=== PATIENT | female | born 1955 | race American Indian/Alaskan Native ===

== ENCOUNTER 2018-07-02 15:39 | Inpatient (IN) | payer OTHER ==
[2018-07-02] MEDS ORDERED: SUBLIMAZE ONE (15:46)
[2018-07-02] MEDS ORDERED: SUBLIMAZE IV ONE (15:46)
[2018-07-02] MEDS ORDERED: ZOFRAN IV ONE (15:46)
[2018-07-02] MEDS ORDERED: DILAUDID IV ONE (16:08)
--- NOTE | 2018-07-02 16:08 | Emergency Department Report ---
HPI - General Time Seen by Provider: 07/02/18 15:44 - HPI HPI: Room 19 The patient is a 62-year-old female presenting with a chief complaint of left lower extremity pain. The patient states that at approximately 14:00 she began having in her proximal left lower extremity. Patient denies any preceding trauma. Patient denies fever. Patient denies any other forms of pain. Patient states she has never had this pain before. Location: Left leg Duration: Constant since 14:00 Quality: Pain Severity: Severe Modifying factors: [see above] Context: [see above] Mode of transportation: [not driving] ED Past Medical Hx - Past Medical History Hx of Cancer: Yes (rest CA s/p lumpectomy and chemo 2007) - Surgical History Past Surgical History?: No Additional Surgical History: Lumpectomy - Family History Family history: no significant - Social History Smoking Status: Never Smoker Substance Use Type: None ED Review of Systems ROS: Stated complaint: L LEG PAIN Other details as noted in HPI Constitutional: no symptoms reported Eyes: denies: eye pain ENT: denies: throat pain Respiratory: no symptoms reported Cardiovascular: denies: chest pain Endocrine: no symptoms reported Gastrointestinal: denies: abdominal pain Musculoskeletal: myalgia Neurological: denies: headache Physical Exam - Physical Exam Physical Exam: GENERAL: The patient is well-developed well-nourished female lying on stretcher appearing to be in moderate discomfort. [] HEENT: Normocephalic. Atraumatic. Extraocular motions are intact. Patient has moist mucous membranes. NECK: Supple. Trachea midline CHEST/LUNGS: Clear to auscultation. There is no respiratory distress noted. HEART/CARDIOVASCULAR: Regular. There is no tachycardia. There is no gallop rub or murmur. Unable to palpate left DP ABDOMEN: Abdomen is soft, nontender. Patient has normal bowel sounds. There is no abdominal distention. SKIN: There is no rash. There is no edema. There is no diaphoresis. NEURO: The patient is awake, alert, and oriented. The patient is cooperative. The patient has normal speech MUSCULOSKELETAL: There is no evidence of acute injury. Patient is able to move the left lower extremity at the hip and knee but states she cannot wiggle her toes ED Course - Consultations Consultation #1: 07/02/18 16:52 Vascular surgery paged 07/02/18 17:[address] Robertson-will evaluate patient in ED ED Medical Decision Making - Lab Data Result diagrams: 07/02/18 15:49 07/02/18 15:49 - Differential Diagnosis peripheral arterial disease, rhabdomyolysis, Critical Care Time: Yes Critical care time in (mins) excluding proc time.: 30 Critical care attestation.: If time is entered above; I have spent that time in minutes in the direct care of this critically ill patient, excluding procedure time. ED Disposition Clinical Impression: Acute occlusion of artery of lower extremity, Acute pain of left lower extremity Disposition: DC-[id number] OP ADMIT IP TO THIS HOSP Is pt being admited?: Yes Does the pt Need Aspirin: Yes Condition: Serious Time of Disposition: 17:05
[2018-07-02 16:17] LABS: Basophils # (Auto) 0.1 K/mm3 (0.0-0.1); Basophils % (Auto) 0.5 % (0.0-1.8); Eosinophils # (Auto) 0.3 K/mm3 (0.0-0.4); Eosinophils % (Auto) 2.2 % (0.0-4.3); Hematocrit 35.8 % (30.3-42.9); Lymphocytes # (Auto) 2.3 K/mm3 (1.2-5.4); Lymphocytes % (Auto) 17.5 % (13.4-35.0); Mean Corpuscular HGB Conc 34 % (30-34); Mean Corpuscular Hemoglobin 28 pg (28-32); Mean Corpuscular Volume 82 fl (79-97); Monocytes # (Auto) 0.6 K/mm3 (0.0-0.8); Monocytes % (Auto) 4.6 % (0.0-7.3); Platelet Count 209 K/mm3 (140-440); Red Blood Count 4.36 M/mm3 (3.65-5.03); Red Cell Distribution Width 14.9 % (13.2-15.2)
[2018-07-02 16:35] LABS: BUN/Creatinine Ratio 14; Blood Urea Nitrogen 13 mg/dL (7-17); Calcium 9.4 mg/dL (8.4-10.2); Hemolysis Index 4
[2018-07-02 16:36] LABS: INR 1.05 (0.87-1.13)
[2018-07-02 16:37] LABS: Partial Thromboplastin Time 25.2 Sec. (24.2-36.6)
[2018-07-02] MEDS ORDERED: HEPARIN 10,000 UNITS/10 ML IV ONE ×2 (17:23→19:47)
[2018-07-02] MEDS ORDERED: HEPARIN/ 0.45% NACL-25,000 UNIT/500 ML 25,000 UNIT/500 ML BAG IV SCH (18:00)
--- NOTE | 2018-07-02 18:33 | Anesthesia Day of Surgery ---
Anesthesia Day of Surgery - Day of Surgery Patient Examined: Yes Patient H&P Reviewed: Yes Patient is NPO: Yes
--- NOTE | 2018-07-02 18:35 | History and Physical Report ---
History of Present Illness Date of examination: 07/02/18 Date of admission: 07/02/2018 Chief complaint: left leg pain and numbness History of present illness: Patient is a 62-year-old woman with a past medical history most significant for breast cancer which was last treated in 2007. At approximately 2 PM today she noticed the abrupt onset of pain and numbness involving the left lower extremity. Just prior to that she had had sensations of wanting to have a bowel movement. She actually did have 2 bowel movements. After the second bowel movement she described a sudden onset of pain and numbness involving the left lower extremity. The pain continues now. She states she cannot move the left foot and that it feels numb. She has no complaints relative to the right lower extremity. She denies any previous history of atrial fibrillation or arterial or venous thrombosis. She is not currently taking any hormone therapy for breast cancer. She is being treated for hypertension. Past History Past Medical History: cancer (breast cancer last treated in 2007), hypertension. denies: atrial fib, diabetes, PVD, pulmonary embolism, renal failure, stroke Past Surgical History: mastectomy (left) Social history: lives with family. denies: smoking, alcohol abuse Family history: no significant family history Medications and Allergies Allergies Allergy/AdvReac Type Severity Reaction Status Date / Time No Known Allergies Allergy Unverified 07/02/18 16:01 Active Meds: Active Medications Heparin Sodium/Sodium Chloride (Heparin/ 0.45% Nacl-25,000 Unit/500 Ml) 25,000 unit in 500 mls @ 20 mls/hr IV TITR TIARRA; Protocol Last Admin: 07/02/18 18:12 Dose: 1,000 units/hr, 20 mls/hr Review of Systems All systems: negative - Constitutional no weight loss, no weight gain, no fever, no chills, no sweats, no fatigue, no weakness, no malaise - Cardiovascular no chest pain, no palpitations, no rapid/irregular heart beat - Respiratory no shortness of breath - Gastrointestinal no abdominal pain, no nausea, no vomiting - Neurological other (cannot move left leg) - Psychiatric no anxiety, no memory loss, no depression - Endocrine no cold intolerance, no heat intolerance - Hematologic/Lymphatic lymphedema (left arm), no easy bruising, no easy bleeding - Allergic/Immunologic no urticaria Exam Vital Signs Pulse BP Pulse Ox 73 229/127 99 07/02/18 15:46 07/02/18 15:46 07/02/18 15:46 - General physical appearance Positive: well developed, well nourished, no distress - Eyes Positive: PERRL, normal occular movement - ENT Positive: normal pinna, normal nares, normal mucosa, no hearing loss, no congestion - Neck Positive: no masses, no bruits, trachea midline, no venous distension - Respiratory Positive: normal expansion, normal respiratory effort, clear to auscultation - Cardiovascular Rhythm: regular Heart Sounds: Present: S1 & S2. Absent: rub, click - Extremities Extremity abnormal: other (the right lower extremity is within normal limits. The left lower extremity is cold and pulseless starting at the femoral artery and distal. There is no sensation and no motion below the level of the thigh.) - Peripheral pulses dorsalis pedis Pulse Strength: 2+ (right, absent on the left.) - Breasts Breasts: deferred - Abdomen Abdomen: Present: soft, bowel sounds normal. Absent: tender, distended - Genitourinary Female Genitourinary: deferred - Integumentary no rash, no growths, no abnormal pigmentation - Neurologic Neurologic: alert and oriented to time, place and person, motor strength and sensation are grossly intact, CN II-XII intact - Musculoskeletal other (see above) - Psychiatric Psychiatric: appropriate mood/affect, intact judgment & insight Results - Labs 07/02/18 15:49 07/02/18 15:49 Abnormal lab results 07/02/18 07/02/18 07/02/18 Range/Units 15:49 15:49 15:49 WBC 12.9 H (4.5-11.0) K/mm3 Seg Neutrophils % 75.2 H (40.0-70.0) % Seg Neutrophils # 9.7 H (1.8-7.7) K/mm3 Potassium 2.6 L* (3.6-5.0) mmol/L Chloride 97.8 L (98-107) mmol/L Glucose 158 H (65-100) mg/dL Total Creatine Kinase 165 H (30-135) units/L Diabetes panel 07/02/18 Range/Units 15:49 Sodium 137 (137-145) mmol/L Potassium 2.6 L* (3.6-5.0) mmol/L Chloride 97.8 L (98-107) mmol/L Carbon Dioxide 24 (22-30) mmol/L BUN 13 (7-17) mg/dL Creatinine 0.9 (0.7-1.2) mg/dL Glucose 158 H (65-100) mg/dL Calcium 9.4 (8.4-10.2) mg/dL Calcium panel 07/02/18 Range/Units 15:49 Calcium 9.4 (8.4-10.2) mg/dL Pituitary panel 07/02/18 Range/Units 15:49 Sodium 137 (137-145) mmol/L Potassium 2.6 L* (3.6-5.0) mmol/L Chloride 97.8 L (98-107) mmol/L Carbon Dioxide 24 (22-30) mmol/L BUN 13 (7-17) mg/dL Creatinine 0.9 (0.7-1.2) mg/dL Glucose 158 H (65-100) mg/dL Calcium 9.4 (8.4-10.2) mg/dL Adrenal panel 07/02/18 Range/Units 15:49 Sodium 137 (137-145) mmol/L Potassium 2.6 L* (3.6-5.0) mmol/L Chloride 97.8 L (98-107) mmol/L Carbon Dioxide 24 (22-30) mmol/L BUN 13 (7-17) mg/dL Creatinine 0.9 (0.7-1.2) mg/dL Glucose 158 H (65-100) mg/dL Calcium 9.4 (8.4-10.2) mg/dL - Imaging Additional studies: Lower extremity arterial duplex shows essentially normal-appearing vasculature from the aorta down to the posterior tibial artery on the left side. There is intraluminal thrombus in the distal external iliac artery on the left extending into the common femoral artery. The left profunda femoris artery appears to be patent as does the left superficial femoral artery. There is no significant atherosclerotic change noted in the left lower extremity arterial system. Biphasic waveforms are noted in the right iliac artery system. Assessment and Plan - Patient Problems (1) Acute occlusion of artery of lower extremity Onset Date: ~07/02/18 Current Visit: Yes Status: Acute Plan to address problem: Patient appears to have an acute embolization of the left common femoral artery. Flow to the left lower extremity is severely compromised. Her left leg feels numb to her and she has no motor function distal to the hip. She has no previous history of cardiac arrhythmia. She has no previous history of prothrombotic state. At this point, I have no obvious explanation as to why she would've had this embolization to her left common femoral artery. This appears to be the extent of her acute arterial occlusion. There are no symptoms consistent with acute occlusion elsewhere. I spoke with the patient and her family at length. She is at high risk for limb loss without intervention. I recommend emergent surgery to clear the thrombus from the common femoral artery. I've asked her to consent to additional procedures that may be necessary in order to salvage her left lower extremity. She understands the risks and benefits of the surgery. She agrees to proceed. She will need further workup to determine the etiology of this thrombus after surgery.
[2018-07-02] MEDS ORDERED: HEPARIN 10,000 UNITS/10 ML ONE (18:45)
[2018-07-02] MEDS ORDERED: NACL 0.9% 500 ML 500 ML ONE (18:45)
[2018-07-02] MEDS ORDERED: NARCAN 0.4 MG/1 ML IV PRN (18:51)
[2018-07-02] MEDS ORDERED: PERCOCET 5/325 PO PRN (18:51)
[2018-07-02] MEDS ORDERED: DEMEROL IV PRN (18:51)
[2018-07-02] MEDS ORDERED: TYLENOL PO PRN (18:51)
[2018-07-02] MEDS ORDERED: DILAUDID IV PRN (18:51)
[2018-07-02] MEDS ORDERED: ZOFRAN IV PRN ×2 (18:51→21:08)
[2018-07-02] MEDS ORDERED: LACTATED RINGERS 1,000 ML IV SCH (19:00)
[2018-07-02] MEDS ORDERED: DIPRIVAN 10 MG/ML IV ONE (19:11)
[2018-07-02] MEDS ORDERED: DILAUDID ONE (19:11)
--- NOTE | 2018-07-02 19:22 | Vascular Lab Report ---
Left lower extremity arterial duplex Reason for exam: Acute onset left lower extremity pain Comments: On the right, biphasic waveforms are seen distally as well as proximally. Flow velocities are lower than expected. No evidence of significant average chronic changes seen proximal. The tibial vessels are mildly atherosclerotic. Flow appears to be preserved in the foot. On the left, there is absence of flow in the distal left external iliac artery extending into the common femoral artery. Findings are consistent with embolization or thrombosis of these vessels. The superficial femoral artery and distal vessels appear to be patent but have very little if any flow. The aorta is patent with a low flow velocity of 39 cm/s. No thrombus is seen in the lumen. Impression: 1. Low velocities throughout the aorta and right lower extremity arterial system. 2. Probable acute occlusion of the left common femoral and distal external iliac arteries.
[2018-07-02] MEDS ORDERED: OMNIPAQUE (240mg) IV ONE (19:47)
[2018-07-02] MEDS ORDERED: KCL 20MEQ/100ML 20 MEQ/100 ML BAG IV SCH (20:00)
[2018-07-02] MEDS ORDERED: GELFOAM TP ONE (20:38)
[2018-07-02] MEDS ORDERED: THROMBIN (BOVINE) TP ONE (20:38)
--- NOTE | 2018-07-02 20:45 | Anesthesia Consultation ---
Anesthesia Consult and Med Hx Date of service: 07/02/18 - Airway Anesthetic Teeth Evaluation: Good ROM Head & Neck: Adequate Mental/Hyoid Distance: Adequate Mallampati Class: Class II - Pulmonary Exam CTA: Yes - Cardiac Exam Cardiac Exam: RRR - Pre-Operative Health Status ASA Pre-Surgery Classification: ASA3, Emergency Proposed Anesthetic Plan: General - Cardiovascular System Hx Hypertension: Yes
[2018-07-02] MEDS ORDERED: BLOXIVERZ ONE (21:05)
[2018-07-02] MEDS ORDERED: ZEMURON IV ONE (21:05)
[2018-07-02] MEDS ORDERED: ROBINUL ONE (21:06)
[2018-07-02] MEDS ORDERED: NORCO 5/325 PO PRN (21:08)
[2018-07-02] MEDS ORDERED: NIPRIDE 50 MG in D5W 248 ML IV ONE (21:30)
--- NOTE | 2018-07-02 21:30 | Operative Report ---
Operative Report Operative Report: Date of procedure: 07/02/2018 Pre-operative diagnosis: Embolization to left common femoral artery Post-operative diagnosis: Same Procedure name(s): Open thrombectomy of left common femoral artery with diagnostic angiography and supervision and interpretation Surgeon: Geo Robertson MD Handwriting Expert: None Anesthesia: Gen. endotracheal tube EBL: 250 mL Operative indication: Patient is a 62-year-old woman who had acute onset of pain involving the left lower extremity. Noninvasive arterial studies show thrombus in the left common femoral artery. She presents now for emergent thrombectomy of the left lower extremity. Findings: Acute poorly organized thrombus noted that the left common femoral artery. The thrombus did not extend into the profunda femoris or superficial femoral artery. There was an unusual appearance to the common femoral artery that seemed to be consistent with the dissection although I could not identify 2 lumens when I did the arteriotomy. Procedure: The patient was placed on the table in the supine position. She is given appropriate anesthesia. The area over the left lower extremity was prepped with ChloraPrep solution and draped in usual sterile fashion. A linear incision was made over the common femoral artery and dissection was carried out to identify the common femoral artery, the profunda femoris artery, and the superficial femoral artery. The vessel was very soft with minimal atherosclerotic change. There was obvious thrombus within the lumen of the vessel. There was a odd sort of appearance to the vessel that was inhomogeneous. The patient was currently on a heparin drip was given an additional 3000 units of heparin bolus. A transverse arteriotomy was created just proximal to the profunda femoris artery. Acute thrombus was noted in the lumen of the common femoral artery. There is no arterial flow in the vessel. The thrombus did not extend into the superficial femoral artery or into the profunda femoris artery. A 5 Wilda catheter was then passed proximally into the iliac artery. I was able to pass it easily as far as 30 cm. A thrombectomy was done of the iliac artery with development of an immediate pulse at the inguinal ligament. Several more passes of the catheter revealed more thrombus appeared to be acute. There was now an excellent pulse at the graft with tremendous arterial inflow. A balloon thrombectomy was done using a 4 Wilda of the superficial femoral artery and of the profunda femoris arteries. No thrombus was returned. Angiography was then done of the runoff which showed widely patent runoff only down to the dorsalis pedis artery on the left foot. The posterior tibial artery did not opacify. This appeared to be chronic. Angiography proximally revealed a widely patent iliac system although the internal iliac did not fill. There was some haziness to the vessels just above the injection site and also proximally but there did not appear to be any obstruction of flow. I subsequently passed the Wilda catheter again and the iliac arteries and retrieved nothing. There was tremendous pulsatile inflow. The artery was closed with interrupted 5-0 Prolene. All vessels were flushed and then remove any air or debris. Flow started first to the profunda and the superficial femoral artery without incident. No immediate consultations were noted. There was an excellent multiphasic Doppler signal at the dorsalis pedis artery at the foot. Meticulous hemostasis was obtained. The wound was closed in 2 layers of 3-0 Vicryl and then 4-0 subcuticular PDS. Skin glue was used to close the skin. Sponge, needle, and instrument counts were reported as correct. The patient tolerated the procedure well and was taken from the operating room to the recovery room in stable condition.
[2018-07-02] MEDS ORDERED: NORMODYNE IV ONE ×3 (21:31→22:12)
[2018-07-02] MEDS ORDERED: D5W/0.45% NACL/KCL 20 MEQ 20 MEQ/1,000 ML BAG IV SCH (22:00)
[2018-07-02] MEDS: ANCEF/NS 1 GM/50 ML 1 GM/50 ML BAG IV SCH (22:08)
[2018-07-03 05:34] LABS: Basophils % (Auto) 0.3 % (0.0-1.8); Hematocrit 39.8 % (30.3-42.9); Hemoglobin 13.1 gm/dl (10.1-14.3); Lymphocytes # (Auto) 0.8 K/mm3 (1.2-5.4); Lymphocytes % (Auto) 7.6 % (13.4-35.0); Mean Corpuscular HGB Conc 33 % (30-34); Mean Corpuscular Hemoglobin 28 pg (28-32); Mean Corpuscular Volume 84 fl (79-97); Monocytes # (Auto) 0.7 K/mm3 (0.0-0.8); Platelet Count 208 K/mm3 (140-440); Red Blood Count 4.76 M/mm3 (3.65-5.03); Red Cell Distribution Width 14.9 % (13.2-15.2)
[2018-07-03] MEDS: ANCEF/NS 1 GM/50 ML 1 GM/50 ML BAG IV SCH (06:14)
[2018-07-03] MEDS: MORPHINE IV PRN ×2 (06:36→23:57)
[2018-07-03 06:48] LABS: Calcium 7.7 mg/dL (8.4-10.2)
--- NOTE | 2018-07-03 07:44 | Consultation ---
History of Present Illness Consult date: 07/03/18 Requesting physician: AILYN MLEO Reason for consult: other (Post op critical care mangement, acute limb ischemia s/p thrombectomy) History of present illness: The patient claims that on the day of presentation, she experienced what she describes as gas-like pain in her lower back. She claims that she went to the restroom to move her bowel and developed numbness in her left foot and subsequently all over her LLE. She decided to present to the emergency department. Arterial Doppler studies revealed acute left [employer] WORK ASSISTANT occlusion. She subsequently underwent open thrombectomy of the left [employer] WORK ASSISTANT. She denies history of arrhythmias. She has no palpitations or dizziness. Patient was seen and examined. Vitals, labs, medications, chart and imaging reviewed. s/p Vascular surgery, has some pain in the left leg but is much improved. Currently on a nipride infusion for BP control Sinus rhythm on telemtry She also states she has not seen a physician in many years, since she had her insurance"messed up" Review of Systems Constitutional: no fever, no chills Ears, nose, mouth and throat: no ear pain, no ear discharge, no sore throat Cardiovascular: no chest pain, no palpitations, no lightheadedness, no shortness of breath Respiratory: no cough, no hemoptysis, no shortness of breath Gastrointestinal: no nausea, no vomiting, no diarrhea, no constipation Genitourinary Female: no dysuria, no urinary frequency Rectal: no pain, no bleeding Musculoskeletal: no neck stiffness, no neck pain Integumentary: no rash, no pruritis Neurological: numbness Endocrine: no cold intolerance, no heat intolerance Hematologic/Lymphatic: no easy bruising, no easy bleeding Allergic/Immunologic: no urticaria, no wheezing Past History Past Medical History: cancer (breast cancer last treated in 2007), hypertension , other. denies: atrial fib, diabetes, PVD, pulmonary embolism, renal failure, stroke Past Surgical History: mastectomy (left) Social history: lives with family. denies: smoking, alcohol abuse Family history: no significant family history Medications and Allergies Allergies Allergy/AdvReac Type Severity Reaction Status Date / Time No Known Allergies Allergy Unverified 07/02/18 16:01 Home Medications Medication Instructions Recorded Confirmed Last Taken Type No Known Home Medications [No 07/05/18 07/05/18 Unknown History Reported Home Medications] Active Meds: Active Medications Acetaminophen (Tylenol) 650 mg PO ONCE PRN PRN Reason: Pain, Mild (1-3) Hydromorphone HCl (Dilaudid) 0.5 mg IV Q10MIN PRN PRN Reason: Pain , Severe (7-10) Last Admin: 07/02/18 22:30 Dose: 0.5 mg Lactated Ringer's (Lactated Ringers) 1,000 mls @ 100 mls/hr IV DIRECT TIARRA Heparin Sodium/Sodium Chloride (Heparin/ 0.45% Nacl-25,000 Unit/500 Ml) 25,000 unit in 500 mls @ 20 mls/hr IV TITR TIARRA; Protocol Sodium Nitroprusside 50 mg/ (Dextrose) 250 mls @ 5.24 mls/hr IV TITR ONE; Protocol Stop: 07/04/18 21:12 Last Titration: 07/03/18 06:17 Dose: 1.5 mcg/kg/min, 31.46 mls/hr Dextrose/Sodium Chloride (D5/0.45ns) 1,000 mls @ 125 mls/hr IV DIRECT TIARRA Morphine Sulfate (Morphine) 2 mg IV Q2H PRN PRN Reason: Pain, Moderate (4-6) Last Admin: 07/03/18 06:36 Dose: 2 mg Naloxone HCl (Narcan 0.4 Mg/1 Ml) 0.1 mg IV Q2MIN PRN PRN Reason: Res Rate </= 8 or 02 SAT < 92% Ondansetron HCl (Zofran) 4 mg IV ONCE PRN PRN Reason: Nausea And Vomiting Oxycodone/Acetaminophen (Percocet 5/325) 1 tab PO ONCE PRN PRN Reason: Pain, Moderate (4-6) Physical Examination Vital signs: Vital Signs Pulse BP Pulse Ox 73 229/127 99 07/02/18 15:46 07/02/18 15:46 07/02/18 15:46 General appearance: well-developed, well-nourished, not in any distress EENT: ATNC Respiratory: Good AE bilaterlly, CTA Heart: regular, S1S2, no murmurs, gallops or rubs Gastrointestinal: Present: normal. Absent: tenderness, distended Integumentary: no rash, warm and dry Neurologic: no focal deficit, alert and oriented x3 Musculoskeletal: Present: Left groin dressing, no edema, DP pulses intact Psychiatric: cooperative Results - Laboratory Findings CBC and BMP: 07/05/18 07:55 07/05/18 07:55 PT/INR, D-dimer PT 14.2 Sec. (12.2-14.9) 07/02/18 15:49 INR 1.05 (0.87-1.13) 07/02/18 15:49 Abnormal lab findings: Abnormal Labs 07/02/18 07/02/18 07/02/18 15:49 15:49 15:49 WBC 12.9 H Lymph % (Auto) Lymph # Seg Neutrophils % 75.2 H Seg Neutrophils # 9.7 H Heparin Anti-Xa Level Sodium Potassium 2.6 L* Chloride 97.8 L Creatinine Glucose 158 H Calcium Total Creatine Kinase 165 H 07/03/18 07/03/18 07/03/18 01:30 05:18 05:18 WBC Lymph % (Auto) 7.6 L Lymph # 0.8 L Seg Neutrophils % 86.1 H Seg Neutrophils # 9.3 H Heparin Anti-Xa Level 0.94 H Sodium 135 L Potassium 5.8 H D Chloride 95.4 L Creatinine 1.3 H Glucose 222 H Calcium 7.7 L D Total Creatine Kinase - Diagnostic Findings Chest x-ray: image reviewed Assessment and Plan Acute left limb ischemia s/p Open thrombectomy of left common femoral artery with diagnostic angiography and supervision and interpretation Hypokalemia, now hyperkalemic Acute kidney injury h/o Breast cancer HTN -Continue with anticoagulation -Blood pressure control, start oral medications -Renal consult for worsening renal indices -Avoid nephrotoxics, dose all medications for CrCL -PT/OT/Activity -Discontinue IVF with potassium replacement -Strict Is and O s -Evaluation for cardio-embolic reason fro acute limb ischemia. -Analgesia/Pain management. Discussed care plan with patient Thank you for the consult. Will follow Please do not hesitate to call with any questions or concerns.
[2018-07-03] MEDS: D5/0.45NS 1,000 ML IV SCH ×2 (08:12→15:28)
[2018-07-03] MEDS: HEPARIN/ 0.45% NACL-25,000 UNIT/500 ML 25,000 UNIT/500 ML BAG IV SCH (12:30)
--- NOTE | 2018-07-03 15:55 | Progress Note ---
Assessment and Plan - Patient Problems (1) Acute occlusion of artery of lower extremity Onset Date: ~07/02/18 Current Visit: Yes Status: Acute Plan to address problem: Doing well post op. Etiology of thrombus not clear. Will need more extensive work up. Creatinine mildly elevated. Likely a result of resolving ischemia and dye exposure. Hypokalemia now corrected. BP better controlled now. 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 Can now move left foot freely. Sensation improved significantly. Objective - Constitutional Vitals: Vital Signs - 12hr 07/03/18 07/03/18 07/03/18 04:00 04:11 04:21 Temperature 98.8 F Pulse Rate 90 92 H 93 H Pulse Rate [ Left Dorsalis Pedis] Pulse Rate [ Left Posterior Tibial] Pulse Rate [ Left Radial] Pulse Rate [ Right Dorsalis Pedis] Pulse Rate [ Right Posterior Tibial] Respiratory 20 20 20 Rate Blood Pressure 136/91 174/108 155/102 O2 Sat by Pulse 100 100 100 Oximetry 07/03/18 07/03/18 07/03/18 04:30 04:41 04:51 Temperature Pulse Rate 92 H 94 H 92 H Pulse Rate [ Left Dorsalis Pedis] Pulse Rate [ Left Posterior Tibial] Pulse Rate [ Left Radial] Pulse Rate [ Right Dorsalis Pedis] Pulse Rate [ Right Posterior Tibial] Respiratory 19 22 22 Rate Blood Pressure 154/99 154/99 149/100 O2 Sat by Pulse 100 100 100 Oximetry 07/03/18 07/03/18 07/03/18 05:00 05:10 05:21 Temperature 98.8 F Pulse Rate 95 H 92 H 97 H Pulse Rate [ 91 H Left Dorsalis Pedis] Pulse Rate [ 91 H Left Posterior Tibial] Pulse Rate [ 91 H Left Radial] Pulse Rate [ 91 H Right Dorsalis Pedis] Pulse Rate [ 91 H Right Posterior Tibial] Respiratory 23 21 13 Rate Blood Pressure 165/103 165/103 197/128 O2 Sat by Pulse 100 100 100 Oximetry 07/03/18 07/03/18 07/03/18 05:30 05:41 05:51 Temperature Pulse Rate 93 H 93 H 97 H Pulse Rate [ Left Dorsalis Pedis] Pulse Rate [ Left Posterior Tibial] Pulse Rate [ Left Radial] Pulse Rate [ Right Dorsalis Pedis] Pulse Rate [ Right Posterior Tibial] Respiratory 23 22 16 Rate Blood Pressure 154/110 165/103 142/97 O2 Sat by Pulse 100 100 97 Oximetry 07/03/18 07/03/18 07/03/18 06:00 06:11 06:21 Temperature 98.8 F Pulse Rate 93 H 92 H 98 H Pulse Rate [ Left Dorsalis Pedis] Pulse Rate [ Left Posterior Tibial] Pulse Rate [ Left Radial] Pulse Rate [ Right Dorsalis Pedis] Pulse Rate [ Right Posterior Tibial] Respiratory 26 H 20 26 H Rate Blood Pressure 152/95 152/95 168/102 O2 Sat by Pulse 100 99 100 Oximetry 07/03/18 07/03/18 07/03/18 06:30 06:36 06:41 Temperature Pulse Rate 95 H 93 H Pulse Rate [ Left Dorsalis Pedis] Pulse Rate [ Left Posterior Tibial] Pulse Rate [ Left Radial] Pulse Rate [ Right Dorsalis Pedis] Pulse Rate [ Right Posterior Tibial] Respiratory 21 20 20 Rate Blood Pressure 140/93 140/93 O2 Sat by Pulse 100 99 Oximetry 07/03/18 07/03/18 07/03/18 06:51 07:00 07:10 Temperature 98.8 F Pulse Rate 96 H 92 H 97 H Pulse Rate [ Left Dorsalis Pedis] Pulse Rate [ Left Posterior Tibial] Pulse Rate [ Left Radial] Pulse Rate [ Right Dorsalis Pedis] Pulse Rate [ Right Posterior Tibial] Respiratory 21 16 19 Rate Blood Pressure 137/86 135/87 135/87 O2 Sat by Pulse 96 100 99 Oximetry 07/03/18 07/03/18 07/03/18 07:21 07:30 07:41 Temperature Pulse Rate 95 H 96 H 96 H Pulse Rate [ Left Dorsalis Pedis] Pulse Rate [ Left Posterior Tibial] Pulse Rate [ Left Radial] Pulse Rate [ Right Dorsalis Pedis] Pulse Rate [ Right Posterior Tibial] Respiratory 20 21 21 Rate Blood Pressure 128/85 135/89 135/87 O2 Sat by Pulse 98 99 99 Oximetry 07/03/18 07/03/18 07/03/18 07:51 08:00 08:11 Temperature 98.8 F Pulse Rate 96 H 97 H 96 H Pulse Rate [ Left Dorsalis Pedis] Pulse Rate [ Left Posterior Tibial] Pulse Rate [ Left Radial] Pulse Rate [ Right Dorsalis Pedis] Pulse Rate [ Right Posterior Tibial] Respiratory 21 23 24 Rate Blood Pressure 142/94 133/89 142/94 O2 Sat by Pulse 98 98 98 Oximetry 07/03/18 07/03/18 07/03/18 08:21 08:30 08:41 Temperature Pulse Rate 95 H 93 H 94 H Pulse Rate [ Left Dorsalis Pedis] Pulse Rate [ Left Posterior Tibial] Pulse Rate [ Left Radial] Pulse Rate [ Right Dorsalis Pedis] Pulse Rate [ Right Posterior Tibial] Respiratory 23 18 15 Rate Blood Pressure 125/88 126/81 126/81 O2 Sat by Pulse 100 99 81 L Oximetry 07/03/18 07/03/18 07/03/18 08:51 09:00 09:11 Temperature 98.8 F Pulse Rate 96 H 95 H 92 H Pulse Rate [ Left Dorsalis Pedis] Pulse Rate [ Left Posterior Tibial] Pulse Rate [ Left Radial] Pulse Rate [ Right Dorsalis Pedis] Pulse Rate [ Right Posterior Tibial] Respiratory 12 17 19 Rate Blood Pressure 141/92 139/91 139/91 O2 Sat by Pulse 98 99 97 Oximetry 07/03/18 07/03/18 07/03/18 09:21 09:31 09:41 Temperature Pulse Rate 96 H 96 H 95 H Pulse Rate [ Left Dorsalis Pedis] Pulse Rate [ Left Posterior Tibial] Pulse Rate [ Left Radial] Pulse Rate [ Right Dorsalis Pedis] Pulse Rate [ Right Posterior Tibial] Respiratory 20 12 16 Rate Blood Pressure 150/102 117/83 117/83 O2 Sat by Pulse 98 97 98 Oximetry 07/03/18 07/03/18 07/03/18 09:51 09:52 11:48 Temperature 98.8 F 97.7 F Pulse Rate 97 H 95 H Pulse Rate [ Left Dorsalis Pedis] Pulse Rate [ Left Posterior Tibial] Pulse Rate [ Left Radial] Pulse Rate [ Right Dorsalis Pedis] Pulse Rate [ Right Posterior Tibial] Respiratory 20 16 Rate Blood Pressure 136/84 136/84 O2 Sat by Pulse 97 100 Oximetry Extremities: pulses intact (2+ DP bilaterally) Extremity abnormal: other (left leg soft and nontender) - Labs CBC & Chem 7: 07/03/18 05:18 07/03/18 05:18 Labs: Abnormal lab results 07/02/18 07/02/18 07/02/18 Range/Units 15:49 15:49 15:49 WBC 12.9 H (4.5-11.0) K/mm3 Lymph % (Auto) (13.4-35.0) % Lymph # (1.2-5.4) K/mm3 Seg Neutrophils % 75.2 H (40.0-70.0) % Seg Neutrophils # 9.7 H (1.8-7.7) K/mm3 Heparin Anti-Xa Level (0.3-0.7) U.I./ml Sodium (137-145) mmol/L Potassium 2.6 L* (3.6-5.0) mmol/L Chloride 97.8 L (98-107) mmol/L Creatinine (0.7-1.2) mg/dL Glucose 158 H (65-100) mg/dL Calcium (8.4-10.2) mg/dL Total Creatine Kinase 165 H (30-135) units/L 07/03/18 07/03/18 07/03/18 Range/Units 01:30 05:18 05:18 WBC (4.5-11.0) K/mm3 Lymph % (Auto) 7.6 L (13.4-35.0) % Lymph # 0.8 L (1.2-5.4) K/mm3 Seg Neutrophils % 86.1 H (40.0-70.0) % Seg Neutrophils # 9.3 H (1.8-7.7) K/mm3 Heparin Anti-Xa Level 0.94 H (0.3-0.7) U.I./ml Sodium 135 L (137-145) mmol/L Potassium 5.8 H D (3.6-5.0) mmol/L Chloride 95.4 L (98-107) mmol/L Creatinine 1.3 H (0.7-1.2) mg/dL Glucose 222 H (65-100) mg/dL Calcium 7.7 L D (8.4-10.2) mg/dL Total Creatine Kinase (30-135) units/L 07/03/18 Range/Units 10:54 WBC (4.5-11.0) K/mm3 Lymph % (Auto) (13.4-35.0) % Lymph # (1.2-5.4) K/mm3 Seg Neutrophils % (40.0-70.0) % Seg Neutrophils # (1.8-7.7) K/mm3 Heparin Anti-Xa Level 0.28 L (0.3-0.7) U.I./ml Sodium (137-145) mmol/L Potassium (3.6-5.0) mmol/L Chloride (98-107) mmol/L Creatinine (0.7-1.2) mg/dL Glucose (65-100) mg/dL Calcium (8.4-10.2) mg/dL Total Creatine Kinase (30-135) units/L
[2018-07-03 17:25] LABS: Calcium 7.3 mg/dL (8.4-10.2)
[2018-07-03] MEDS ORDERED: NACL 0.45% 1000 ML 1,000 ML IV SCH (19:00)
--- NOTE | 2018-07-03 19:25 | Consultation ---
History of Present Illness - Reason for Consult Consult date: 07/03/18 acute renal failure - History of Present Illness Mrs. Cortes is a 62yo with a hypertension and hx of breast CA who presented to the ED with sudden onset of left LE pain and numbness. Lower extremity arterial duplex was notable for an intraluminal thrombus in the distal external iliac artery on the left extending into the common femoral artery. She was taken to the OR for emergent open thrombectomy for acute embolization of the left common femoral artery. At admission, patient's SCr 0.9mg/dL which has increased to 1.8mg/dL prompting nephrology consultation Past History Past Medical History: cancer (breast cancer last treated in 2007), hypertension. denies: atrial fib, diabetes, PVD, pulmonary embolism, renal failure, stroke Past Surgical History: mastectomy (left) Social history: lives with family. denies: smoking, alcohol abuse Family history: no significant family history Medications and Allergies Allergies Allergy/AdvReac Type Severity Reaction Status Date / Time No Known Allergies Allergy Unverified 07/02/18 16:01 Active Meds: Active Medications Acetaminophen (Tylenol) 650 mg PO ONCE PRN PRN Reason: Pain, Mild (1-3) Last Admin: 07/03/18 10:08 Dose: 650 mg Hydromorphone HCl (Dilaudid) 0.5 mg IV Q10MIN PRN PRN Reason: Pain , Severe (7-10) Last Admin: 07/02/18 22:30 Dose: 0.5 mg Lactated Ringer's (Lactated Ringers) 1,000 mls @ 100 mls/hr IV DIRECT TIARRA Heparin Sodium/Sodium Chloride (Heparin/ 0.45% Nacl-25,000 Unit/500 Ml) 25,000 unit in 500 mls @ 20 mls/hr IV TITR TIARRA; Protocol Last Admin: 07/03/18 12:30 Dose: 950 units/hr, 19 mls/hr Sodium Nitroprusside 50 mg/ (Dextrose) 250 mls @ 5.24 mls/hr IV TITR ONE; Protocol Stop: 07/04/18 21:12 Last Titration: 07/03/18 09:00 Dose: Infused Dextrose/Sodium Chloride (D5/0.45ns) 1,000 mls @ 125 mls/hr IV DIRECT TIARRA Last Admin: 07/03/18 15:28 Dose: 125 mls/hr Sodium Chloride (Nacl 0.45% 1000 Ml) 1,000 mls @ 125 mls/hr IV DIRECT TIARRA Last Admin: 07/03/18 18:50 Dose: 125 mls/hr Morphine Sulfate (Morphine) 2 mg IV Q2H PRN PRN Reason: Pain, Moderate (4-6) Last Admin: 07/03/18 06:36 Dose: 2 mg Naloxone HCl (Narcan 0.4 Mg/1 Ml) 0.1 mg IV Q2MIN PRN PRN Reason: Res Rate </= 8 or 02 SAT < 92% Ondansetron HCl (Zofran) 4 mg IV ONCE PRN PRN Reason: Nausea And Vomiting Oxycodone/Acetaminophen (Percocet 5/325) 1 tab PO ONCE PRN PRN Reason: Pain, Moderate (4-6) Last Admin: 07/03/18 14:49 Dose: 1 tab Review of Systems All systems: negative Exam - Vital Signs Vital signs: Vital Signs Pulse BP Pulse Ox 73 229/127 99 07/02/18 15:46 07/02/18 15:46 07/02/18 15:46 - General Appearance General appearance: well-developed, well-nourished EENT: ATNC Respiratory: Clear to Ascultation Heart: regular, S1S2 Gastrointestinal: Present: normal. Absent: tenderness, distended Integumentary: no rash, warm and dry Neurologic: no focal deficit, alert and oriented x3 Musculoskeletal: Present: other (no edema) Psychiatric: cooperative Results - Lab Results 07/03/18 05:18 07/03/18 16:26 Most recent lab results Calcium 7.3 mg/dL (8.4-10.2) L 07/03/18 16:26 Assessment and Plan Impression: * Acute kidney injury most likely secondary to contrast induced nephropathy * Embolization to left common femoral artery --s/p Open thrombectomy of left common femoral artery with diagnostic angiography * Hyponatremia * Hypertension Plan: * No indication for renal replacement therapy * Will obtain renal ultrasound * Obtain urine studies * Continue IVF - will stop 1/2 NS and change to NS * Anticoagulation per vascular surgery * Dose medications for renal function * Avoid potential nephrotoxins * AM labs ordered
[2018-07-04] MEDS: NIPRIDE 50 MG in D5W 248 ML IV SCH ×3 (01:00→11:50)
[2018-07-04 02:44] LABS: Bilirubin,Urine NEG (Negative); Blood,Urine LG (Negative); Color,Urine Yellow (Yellow); RBC,Urine < 1.0 /HPF (0.0-6.0); Urobilinogen,Urine < 2.0 mg/dL (<2.0)
[2018-07-04 02:57] LABS: Creatinine,Urine 34.8 mg/dL (0.1-20.0)
[2018-07-04 04:41] LABS: Basophils % (Auto) 0.4 % (0.0-1.8); Eosinophils % (Auto) 0.5 % (0.0-4.3); Lymphocytes # (Auto) 0.7 K/mm3 (1.2-5.4); Lymphocytes % (Auto) 10.2 % (13.4-35.0); Mean Corpuscular HGB Conc 31 % (30-34); Mean Corpuscular Hemoglobin 27 pg (28-32); Mean Corpuscular Volume 87 fl (79-97); Monocytes # (Auto) 0.4 K/mm3 (0.0-0.8); Monocytes % (Auto) 5.2 % (0.0-7.3); Red Blood Count 2.13 M/mm3 (3.65-5.03); Red Cell Distribution Width 14.9 % (13.2-15.2)
[2018-07-04 05:09] LABS: Hematocrit 18.5 % (30.3-42.9); Hemoglobin 5.8 gm/dl (10.1-14.3); Platelet Count 92 K/mm3 (140-440)
[2018-07-04 05:31] LABS: Calcium TNR mg/dL (8.4-10.2)
[2018-07-04 05:32] LABS: BUN/Creatinine Ratio TNR; Blood Urea Nitrogen TNR mg/dL (7-17)
[2018-07-04 05:33] LABS: Hemolysis Index TNR
[2018-07-04 06:13] LABS: Hematocrit 30.7 % (30.3-42.9); Hemoglobin 9.7 gm/dl (10.1-14.3)
[2018-07-04 07:12] LABS: BUN/Creatinine Ratio TNR; Blood Urea Nitrogen TNR mg/dL (7-17)
[2018-07-04 07:13] LABS: Calcium TNR mg/dL (8.4-10.2); Hemolysis Index TNR
[2018-07-04] MEDS ORDERED: NACL 0.45% 1000 ML 1,000 ML IV SCH (08:00)
[2018-07-04 09:14] LABS: Calcium 7.1 mg/dL (8.4-10.2)
--- NOTE | 2018-07-04 11:28 | Progress Note ---
Assessment and Plan Acute left limb ischemia (s/p Open thrombectomy of left common femoral artery with diagnostic angiography and supervision and interpretation) Acute kidney injury h/o Breast cancer Anemia (normocytic) Hyperkalemia - change to cardene drip from Nipride re: side effect profile - maintain SBP per vascular team recommendations to aid tissue perfusion - continue full anticoagulation with IV heparin and transition per vascular team - supplemental oxygen as needed to keep O2 Sats > 90% - serial H&H - vascular checks per RN - get CXR - PT/OT - Avoid nephrotoxics, dose all medications for CrCL - Evaluation for cardio-embolic reason fro acute limb ischemia. - prn Analgesia for pain management. - Once she is off the nicradipine infusion, and blood pressure is controlled, ok to transfer telemetry - Cardiology consult notes reviewed - continue other care per attending / other consultants The high probability of a clinically significant, sudden or life-threatening deterioration of the [cardiac, vascular] system(s) required my full and direct attention, intervention and personal management. The aggregate critical care time was [36] minutes without overlap. 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 history: Patient is seen today for: Acute left limb ischemia; Acute kidney injury; h/o Breast cancer; Anemia (normocytic) Seen and examined at bedside; 24hour events reviewed; nursing and respiratory care staff consulted; no adverse overnight events reported to me; resting peacefully in bed; her is in room; she states that she is feeling better ; left leg pain much better; denies acute chest pains or palpitations; no similar occurrence in past; no gross bleeding noted Objective Vital Signs - 12hr 07/03/18 07/03/18 07/03/18 23:29 23:30 23:41 Temperature Pulse Rate 93 H 87 91 H Pulse Rate [ Apical] Respiratory 16 23 25 H Rate Blood Pressure 139/80 153/95 160/84 O2 Sat by Pulse 97 99 98 Oximetry 07/03/18 07/04/18 07/04/18 23:51 00:00 00:01 Temperature Pulse Rate 89 79 86 Pulse Rate [ Apical] Respiratory 22 16 22 Rate Blood Pressure 165/90 165/90 194/110 O2 Sat by Pulse 100 100 98 Oximetry 07/04/18 07/04/18 07/04/18 00:11 00:21 00:31 Temperature Pulse Rate 85 86 93 H Pulse Rate [ Apical] Respiratory 18 18 25 H Rate Blood Pressure 137/79 136/80 138/73 O2 Sat by Pulse 98 98 99 Oximetry 07/04/18 07/04/18 07/04/18 00:41 00:51 01:00 Temperature Pulse Rate 85 91 H 87 Pulse Rate [ Apical] Respiratory 18 18 13 Rate Blood Pressure 165/90 163/85 152/82 O2 Sat by Pulse 97 96 99 Oximetry 07/04/18 07/04/18 07/04/18 01:11 01:21 01:30 Temperature Pulse Rate 86 83 86 Pulse Rate [ Apical] Respiratory 11 L 13 21 Rate Blood Pressure 163/85 161/86 159/91 O2 Sat by Pulse 99 97 100 Oximetry 07/04/18 07/04/18 07/04/18 01:41 01:50 02:00 Temperature Pulse Rate 92 H 91 H 92 H Pulse Rate [ 88 Apical] Respiratory 14 16 16 Rate Blood Pressure 159/91 163/85 141/81 O2 Sat by Pulse 100 100 100 Oximetry 07/04/18 07/04/18 07/04/18 02:05 02:11 02:20 Temperature 98.4 F Pulse Rate 91 H 86 Pulse Rate [ Apical] Respiratory 16 20 Rate Blood Pressure 141/81 134/87 O2 Sat by Pulse 100 100 Oximetry 07/04/18 07/04/18 07/04/18 02:30 02:41 02:51 Temperature Pulse Rate 83 86 87 Pulse Rate [ Apical] Respiratory 17 18 20 Rate Blood Pressure 136/94 134/87 128/89 O2 Sat by Pulse 100 100 100 Oximetry 07/04/18 07/04/18 07/04/18 03:01 03:11 03:21 Temperature Pulse Rate 85 89 89 Pulse Rate [ Apical] Respiratory 13 17 15 Rate Blood Pressure 117/84 128/89 132/81 O2 Sat by Pulse 100 100 100 Oximetry 07/04/18 07/04/18 07/04/18 03:31 03:41 03:51 Temperature Pulse Rate 82 86 83 Pulse Rate [ Apical] Respiratory 22 16 15 Rate Blood Pressure 162/93 162/93 147/85 O2 Sat by Pulse 99 98 98 Oximetry 07/04/18 07/04/18 07/04/18 04:01 04:11 04:21 Temperature Pulse Rate 83 85 84 Pulse Rate [ Apical] Respiratory 22 20 15 Rate Blood Pressure 208/97 147/85 173/93 O2 Sat by Pulse 96 100 97 Oximetry 07/04/18 07/04/18 07/04/18 04:30 04:41 04:51 Temperature Pulse Rate 86 87 89 Pulse Rate [ Apical] Respiratory 7 L 15 14 Rate Blood Pressure 197/109 197/109 177/102 O2 Sat by Pulse 99 99 100 Oximetry 07/04/18 07/04/18 07/04/18 05:01 05:10 05:21 Temperature Pulse Rate 129 H 100 H 94 H Pulse Rate [ Apical] Respiratory 17 10 L 20 Rate Blood Pressure 230/169 184/102 140/83 O2 Sat by Pulse 98 97 98 Oximetry 07/04/18 07/04/18 07/04/18 05:30 05:41 05:51 Temperature Pulse Rate 95 H 95 H 97 H Pulse Rate [ Apical] Respiratory 18 18 18 Rate Blood Pressure 141/87 141/87 138/93 O2 Sat by Pulse 99 100 99 Oximetry 07/04/18 07/04/18 07/04/18 06:00 06:11 06:21 Temperature 98.4 F Pulse Rate 95 H 97 H 95 H Pulse Rate [ 80 Apical] Respiratory 17 18 18 Rate Blood Pressure 138/93 155/80 130/67 O2 Sat by Pulse 99 99 98 Oximetry 07/04/18 07/04/18 07/04/18 06:30 06:41 06:51 Temperature Pulse Rate 100 H 101 H 99 H Pulse Rate [ Apical] Respiratory 18 20 22 Rate Blood Pressure 149/88 149/88 150/90 O2 Sat by Pulse 99 100 97 Oximetry 07/04/18 07/04/18 07:00 07:11 Temperature Pulse Rate 96 H 93 H Pulse Rate [ Apical] Respiratory 19 18 Rate Blood Pressure 150/90 148/85 O2 Sat by Pulse 98 95 Oximetry Constitutional: no acute distress, alert, other (elderly obese AAF, normocephalic and atraumatic) Eyes: non-icteric ENT: oropharynx moist, other (Mallampati 3) Neck: supple, no lymphadenopathy, no JVD, other (no thyromegaly) Effort: mildly labored Ascultation: Bilateral: clear, diminished breath sounds (in bases) Percussion: Bilateral: not dull Cardiovascular: regular rate and rhythm, other (No R/M) Gastrointestinal: normoactive bowel sounds, soft, non-tender, non-distended, other (No HSM) Integumentary: other (post-op surgical wound) Extremities: no cyanosis, pink and warm, no ischemia or petechiae, edema (mild to left leg) Neurologic: normal mental status, non-focal exam, pupils equal and round, motor strength normal and Psychiatric: mood appropriate, affect normal CBC and BMP: 07/06/18 02:25 07/06/18 02:25 ABG, PT/INR, D-dimer: PT/INR, D-dimer PT 14.2 Sec. (12.2-14.9) 07/02/18 15:49 INR 1.05 (0.87-1.13) 07/02/18 15:49 Abnormal lab findings: Abnormal Labs 07/02/18 07/02/18 07/02/18 15:49 15:49 15:49 WBC 12.9 H RBC Hgb Hct MCH Plt Count Lymph % (Auto) Lymph # Seg Neutrophils % 75.2 H Seg Neutrophils # 9.7 H Heparin Anti-Xa Level Sodium Potassium 2.6 L* Chloride 97.8 L Carbon Dioxide BUN Creatinine Glucose 158 H Calcium Total Creatine Kinase 165 H Urine Creatinine 07/03/18 07/03/18 07/03/18 01:30 05:18 05:18 WBC RBC Hgb Hct MCH Plt Count Lymph % (Auto) 7.6 L Lymph # 0.8 L Seg Neutrophils % 86.1 H Seg Neutrophils # 9.3 H Heparin Anti-Xa Level 0.94 H Sodium 135 L Potassium 5.8 H D Chloride 95.4 L Carbon Dioxide BUN Creatinine 1.3 H Glucose 222 H Calcium 7.7 L D Total Creatine Kinase Urine Creatinine 07/03/18 07/03/18 07/04/18 10:54 16:26 02:00 WBC RBC Hgb Hct MCH Plt Count Lymph % (Auto) Lymph # Seg Neutrophils % Seg Neutrophils # Heparin Anti-Xa Level 0.28 L Sodium 129 L Potassium Chloride 95.3 L Carbon Dioxide 20 L BUN 24 H Creatinine 1.8 H Glucose 140 H Calcium 7.3 L Total Creatine Kinase Urine Creatinine 34.8 H 07/04/18 07/04/18 07/04/18 04:18 05:33 08:37 WBC RBC 2.13 L Hgb 5.8 L* D 9.7 L D Hct 18.5 L* D MCH 27 L Plt Count 92 L Lymph % (Auto) 10.2 L Lymph # 0.7 L Seg Neutrophils % 83.7 H Seg Neutrophils # Heparin Anti-Xa Level Sodium 127 L Potassium Chloride 93.6 L Carbon Dioxide 19 L BUN 28 H Creatinine 2.6 H Glucose 109 H Calcium 7.1 L Total Creatine Kinase Urine Creatinine Chest x-ray: pending Allied health notes reviewed: nursing
--- NOTE | 2018-07-04 13:09 | Progress Note ---
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 Absent: tenderness, distended Integumentary: no rash, warm and dry Neurologic: no focal deficit, alert and oriented x3 Musculoskeletal: Present: other (no edema) Psychiatric: cooperative - Vital Signs Vital signs: Vital Signs - 12hr 07/04/18 07/04/18 07/04/18 01:11 01:21 01:30 Temperature Pulse Rate 86 83 86 Pulse Rate [ Apical] Respiratory 11 L 13 21 Rate Blood Pressure 163/85 161/86 159/91 O2 Sat by Pulse 99 97 100 Oximetry 07/04/18 07/04/18 07/04/18 01:41 01:50 02:00 Temperature Pulse Rate 92 H 91 H 92 H Pulse Rate [ 88 Apical] Respiratory 14 16 16 Rate Blood Pressure 159/91 163/85 141/81 O2 Sat by Pulse 100 100 100 Oximetry 07/04/18 07/04/18 07/04/18 02:05 02:11 02:20 Temperature 98.4 F Pulse Rate 91 H 86 Pulse Rate [ Apical] Respiratory 16 20 Rate Blood Pressure 141/81 134/87 O2 Sat by Pulse 100 100 Oximetry 07/04/18 07/04/18 07/04/18 02:30 02:41 02:51 Temperature Pulse Rate 83 86 87 Pulse Rate [ Apical] Respiratory 17 18 20 Rate Blood Pressure 136/94 134/87 128/89 O2 Sat by Pulse 100 100 100 Oximetry 07/04/18 07/04/18 07/04/18 03:01 03:11 03:21 Temperature Pulse Rate 85 89 89 Pulse Rate [ Apical] Respiratory 13 17 15 Rate Blood Pressure 117/84 128/89 132/81 O2 Sat by Pulse 100 100 100 Oximetry 07/04/18 07/04/18 07/04/18 03:31 03:41 03:51 Temperature Pulse Rate 82 86 83 Pulse Rate [ Apical] Respiratory 22 16 15 Rate Blood Pressure 162/93 162/93 147/85 O2 Sat by Pulse 99 98 98 Oximetry 07/04/18 07/04/18 07/04/18 04:01 04:11 04:21 Temperature Pulse Rate 83 85 84 Pulse Rate [ Apical] Respiratory 22 20 15 Rate Blood Pressure 208/97 147/85 173/93 O2 Sat by Pulse 96 100 97 Oximetry 07/04/18 07/04/18 07/04/18 04:30 04:41 04:51 Temperature Pulse Rate 86 87 89 Pulse Rate [ Apical] Respiratory 7 L 15 14 Rate Blood Pressure 197/109 197/109 177/102 O2 Sat by Pulse 99 99 100 Oximetry 07/04/18 07/04/18 07/04/18 05:01 05:10 05:21 Temperature Pulse Rate 129 H 100 H 94 H Pulse Rate [ Apical] Respiratory 17 10 L 20 Rate Blood Pressure 230/169 184/102 140/83 O2 Sat by Pulse 98 97 98 Oximetry 07/04/18 07/04/18 07/04/18 05:30 05:41 05:51 Temperature Pulse Rate 95 H 95 H 97 H Pulse Rate [ Apical] Respiratory 18 18 18 Rate Blood Pressure 141/87 141/87 138/93 O2 Sat by Pulse 99 100 99 Oximetry 07/04/18 07/04/18 07/04/18 06:00 06:11 06:21 Temperature 98.4 F Pulse Rate 95 H 97 H 95 H Pulse Rate [ 80 Apical] Respiratory 17 18 18 Rate Blood Pressure 138/93 155/80 130/67 O2 Sat by Pulse 99 99 98 Oximetry 07/04/18 07/04/18 07/04/18 06:30 06:41 06:51 Temperature Pulse Rate 100 H 101 H 99 H Pulse Rate [ Apical] Respiratory 18 20 22 Rate Blood Pressure 149/88 149/88 150/90 O2 Sat by Pulse 99 100 97 Oximetry 07/04/18 07/04/18 07/04/18 07:00 07:11 07:21 Temperature 98.7 F Pulse Rate 96 H 93 H 94 H Pulse Rate [ Apical] Respiratory 19 18 18 Rate Blood Pressure 150/90 148/85 148/85 O2 Sat by Pulse 98 95 98 Oximetry 07/04/18 07/04/18 07/04/18 07:30 07:41 07:51 Temperature Pulse Rate 98 H 101 H 99 H Pulse Rate [ Apical] Respiratory 15 17 18 Rate Blood Pressure 162/93 162/93 162/93 O2 Sat by Pulse 98 98 96 Oximetry 07/04/18 07/04/18 07/04/18 08:01 08:11 08:21 Temperature Pulse Rate 96 H 94 H 97 H Pulse Rate [ Apical] Respiratory 19 21 23 Rate Blood Pressure 162/93 145/81 164/98 O2 Sat by Pulse 100 97 97 Oximetry 07/04/18 07/04/18 07/04/18 08:30 08:41 08:51 Temperature Pulse Rate 94 H 95 H 96 H Pulse Rate [ Apical] Respiratory 20 17 17 Rate Blood Pressure 160/90 160/90 164/98 O2 Sat by Pulse 98 100 97 Oximetry 07/04/18 07/04/18 07/04/18 09:00 09:11 09:21 Temperature Pulse Rate 93 H 96 H 99 H Pulse Rate [ Apical] Respiratory 17 17 17 Rate Blood Pressure 161/91 161/91 161/91 O2 Sat by Pulse 96 99 98 Oximetry 07/04/18 07/04/18 07/04/18 09:30 09:41 09:51 Temperature Pulse Rate 96 H 102 H 96 H Pulse Rate [ Apical] Respiratory 18 16 19 Rate Blood Pressure 153/90 153/90 151/97 O2 Sat by Pulse 97 99 99 Oximetry 07/04/18 07/04/18 07/04/18 10:00 10:11 10:20 Temperature Pulse Rate 92 H 97 H 99 H Pulse Rate [ Apical] Respiratory 18 19 18 Rate Blood Pressure 161/90 161/90 153/90 O2 Sat by Pulse 96 97 99 Oximetry 07/04/18 07/04/18 07/04/18 10:31 10:41 10:51 Temperature Pulse Rate 102 H 97 H 98 H Pulse Rate [ Apical] Respiratory 16 25 H 19 Rate Blood Pressure 130/94 130/94 153/90 O2 Sat by Pulse 100 97 95 Oximetry 07/04/18 07/04/18 07/04/18 11:00 11:10 11:20 Temperature Pulse Rate 93 H 100 H 98 H Pulse Rate [ Apical] Respiratory 16 16 19 Rate Blood Pressure 164/90 186/129 O2 Sat by Pulse 95 98 98 Oximetry 07/04/18 07/04/18 07/04/18 11:30 11:40 11:50 Temperature Pulse Rate 100 H 98 H 102 H Pulse Rate [ Apical] Respiratory 15 19 21 Rate Blood Pressure 188/105 139/90 222/129 O2 Sat by Pulse 100 99 98 Oximetry - Lab 07/04/18 05:33 07/04/18 08:37 Most recent lab results Calcium 7.1 mg/dL (8.4-10.2) L 07/04/18 08:37 Urine Creatinine 34.8 mg/dL (0.1-20.0) H 07/04/18 02:00 Urine Sodium 92 mmol/L 07/04/18 02:00
[2018-07-04] MEDS: CARDENE 50 MG in NACL 0.9% 250ML 230 ML IV SCH ×3 (14:30→23:38)
--- NOTE | 2018-07-04 15:21 | Ultrasound Report ---
ULTRASOUND RENAL BILATERAL HISTORY: Acute renal insufficiency. TECHNIQUE: transabdominal ultrasound with color Doppler interrogation. COMPARISON: none. FINDINGS: The right kidney measures 11.8cm. Right renal cortex: 1.5cm. The left kidney measures 12.9cm. Left renal cortex: 1.9cm. The kidneys are normal size, contour and position. There is increased renal cortical echotexture bilaterally consistent with nonspecific renal parenchymal disease. Corticomedullary differentiation is preserved. A 5.8 x 5.7 cm anechoic lesion is identified at the inferior pole of the left kidney consistent with a cyst. No evidence for mass, nephrolithiasis, hydronephrosis or perinephric fluid. The views of the bladder and the region of the ureters appear normal. IMPRESSION: Renal parenchymal disease. 5.8 cm left renal cyst.
--- NOTE | 2018-07-04 16:59 | Progress Note ---
Assessment and Plan Pt s/p LLE embolectomy. ?Etiology? Will consult cardiology as cardiac embolus is certainly possible. Pt will need CTA of the Chest, Abd, and pelvis. Will hold off for now given ARF. Pt's acute surgical issues appear improved. If pt requires continued hospitalization for renal failure, and embolic work up, then will need to discuss with the hospitalist about switching her over to their service. 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 LLE feels much better following embolectomy. Objective - Constitutional Vitals: Vital Signs - 12hr 07/04/18 07/04/18 07/04/18 05:01 05:10 05:21 Temperature Pulse Rate 129 H 100 H 94 H Pulse Rate [ Apical] Respiratory 17 10 L 20 Rate Blood Pressure 230/169 184/102 140/83 O2 Sat by Pulse 98 97 98 Oximetry 07/04/18 07/04/18 07/04/18 05:30 05:41 05:51 Temperature Pulse Rate 95 H 95 H 97 H Pulse Rate [ Apical] Respiratory 18 18 18 Rate Blood Pressure 141/87 141/87 138/93 O2 Sat by Pulse 99 100 99 Oximetry 07/04/18 07/04/18 07/04/18 06:00 06:11 06:21 Temperature 98.4 F Pulse Rate 95 H 97 H 95 H Pulse Rate [ 80 Apical] Respiratory 17 18 18 Rate Blood Pressure 138/93 155/80 130/67 O2 Sat by Pulse 99 99 98 Oximetry 07/04/18 07/04/18 07/04/18 06:30 06:41 06:51 Temperature Pulse Rate 100 H 101 H 99 H Pulse Rate [ Apical] Respiratory 18 20 22 Rate Blood Pressure 149/88 149/88 150/90 O2 Sat by Pulse 99 100 97 Oximetry 07/04/18 07/04/18 07/04/18 07:00 07:11 07:21 Temperature 98.7 F Pulse Rate 96 H 93 H 94 H Pulse Rate [ Apical] Respiratory 19 18 18 Rate Blood Pressure 150/90 148/85 148/85 O2 Sat by Pulse 98 95 98 Oximetry 07/04/18 07/04/18 07/04/18 07:30 07:41 07:51 Temperature Pulse Rate 98 H 101 H 99 H Pulse Rate [ Apical] Respiratory 15 17 18 Rate Blood Pressure 162/93 162/93 162/93 O2 Sat by Pulse 98 98 96 Oximetry 07/04/18 07/04/18 07/04/18 08:01 08:11 08:21 Temperature Pulse Rate 96 H 94 H 97 H Pulse Rate [ Apical] Respiratory 19 21 23 Rate Blood Pressure 162/93 145/81 164/98 O2 Sat by Pulse 100 97 97 Oximetry 07/04/18 07/04/18 07/04/18 08:30 08:41 08:51 Temperature Pulse Rate 94 H 95 H 96 H Pulse Rate [ Apical] Respiratory 20 17 17 Rate Blood Pressure 160/90 160/90 164/98 O2 Sat by Pulse 98 100 97 Oximetry 07/04/18 07/04/18 07/04/18 09:00 09:11 09:21 Temperature Pulse Rate 93 H 96 H 99 H Pulse Rate [ Apical] Respiratory 17 17 17 Rate Blood Pressure 161/91 161/91 161/91 O2 Sat by Pulse 96 99 98 Oximetry 07/04/18 07/04/18 07/04/18 09:30 09:41 09:51 Temperature Pulse Rate 96 H 102 H 96 H Pulse Rate [ Apical] Respiratory 18 16 19 Rate Blood Pressure 153/90 153/90 151/97 O2 Sat by Pulse 97 99 99 Oximetry 07/04/18 07/04/18 07/04/18 10:00 10:11 10:20 Temperature Pulse Rate 92 H 97 H 99 H Pulse Rate [ Apical] Respiratory 18 19 18 Rate Blood Pressure 161/90 161/90 153/90 O2 Sat by Pulse 96 97 99 Oximetry 07/04/18 07/04/18 07/04/18 10:31 10:41 10:51 Temperature Pulse Rate 102 H 97 H 98 H Pulse Rate [ Apical] Respiratory 16 25 H 19 Rate Blood Pressure 130/94 130/94 153/90 O2 Sat by Pulse 100 97 95 Oximetry 07/04/18 07/04/18 07/04/18 11:00 11:10 11:20 Temperature Pulse Rate 93 H 100 H 98 H Pulse Rate [ Apical] Respiratory 16 16 19 Rate Blood Pressure 164/90 186/129 O2 Sat by Pulse 95 98 98 Oximetry 07/04/18 07/04/18 07/04/18 11:30 11:40 11:50 Temperature Pulse Rate 100 H 98 H 102 H Pulse Rate [ Apical] Respiratory 15 19 21 Rate Blood Pressure 188/105 139/90 222/129 O2 Sat by Pulse 100 99 98 Oximetry General appearance: Present: no acute distress - EENT Eyes: EOM intact ENT: hearing intact - Neck Neck: supple - Respiratory Respiratory effort: normal Extremities: normal temperature - Neurologic Neurologic: no focal deficits, moves all extremities - Psychiatric Psychiatric: appropriate mood/affect, intact judgment & insight, cooperative - Labs CBC & Chem 7: 07/04/18 05:33 07/04/18 08:37 Labs: Abnormal lab results 07/03/18 07/04/18 07/04/18 Range/Units 16:26 02:00 04:18 RBC 2.13 L (3.65-5.03) M/mm3 Hgb 5.8 L* D (10.1-14.3) gm/dl Hct 18.5 L* D (30.3-42.9) % MCH 27 L (28-32) pg Plt Count 92 L (140-440) K/mm3 Lymph % (Auto) 10.2 L (13.4-35.0) % Lymph # 0.7 L (1.2-5.4) K/mm3 Seg Neutrophils % 83.7 H (40.0-70.0) % Sodium 129 L (137-145) mmol/L Chloride 95.3 L (98-107) mmol/L Carbon Dioxide 20 L (22-30) mmol/L BUN 24 H (7-17) mg/dL Creatinine 1.8 H (0.7-1.2) mg/dL Glucose 140 H (65-100) mg/dL Calcium 7.3 L (8.4-10.2) mg/dL Urine Creatinine 34.8 H (0.1-20.0) mg/dL 07/04/18 07/04/18 Range/Units 05:33 08:37 RBC (3.65-5.03) M/mm3 Hgb 9.7 L D (10.1-14.3) gm/dl Hct (30.3-42.9) % MCH (28-32) pg Plt Count (140-440) K/mm3 Lymph % (Auto) (13.4-35.0) % Lymph # (1.2-5.4) K/mm3 Seg Neutrophils % (40.0-70.0) % Sodium 127 L (137-145) mmol/L Chloride 93.6 L (98-107) mmol/L Carbon Dioxide 19 L (22-30) mmol/L BUN 28 H (7-17) mg/dL Creatinine 2.6 H (0.7-1.2) mg/dL Glucose 109 H (65-100) mg/dL Calcium 7.1 L (8.4-10.2) mg/dL Urine Creatinine (0.1-20.0) mg/dL
[2018-07-04] MEDS: PEPCID IV SCH (17:29)
[2018-07-04] MEDS: HEPARIN/ 0.45% NACL-25,000 UNIT/500 ML 25,000 UNIT/500 ML BAG IV SCH (23:36)
[2018-07-04] MEDS: NACL 0.9% 1000 ML 1,000 ML IV SCH (23:37)
[2018-07-05] MEDS: MORPHINE IV PRN ×2 (00:35→11:31)
[2018-07-05] MEDS: CARDENE 50 MG in NACL 0.9% 250ML 230 ML IV SCH (08:25)
[2018-07-05 08:28] LABS: Basophils % (Auto) 0.2 % (0.0-1.8); Eosinophils % (Auto) 0.1 % (0.0-4.3); Hematocrit 29.1 % (30.3-42.9); Hemoglobin 10.1 gm/dl (10.1-14.3); Lymphocytes % (Auto) 7.2 % (13.4-35.0); Mean Corpuscular HGB Conc 35 % (30-34); Mean Corpuscular Hemoglobin 28 pg (28-32); Mean Corpuscular Volume 80 fl (79-97); Monocytes # (Auto) 0.7 K/mm3 (0.0-0.8); Platelet Count 185 K/mm3 (140-440); Red Blood Count 3.63 M/mm3 (3.65-5.03); Red Cell Distribution Width 14.5 % (13.2-15.2)
[2018-07-05 08:45] LABS: Calcium 7.4 mg/dL (8.4-10.2)
--- NOTE | 2018-07-05 09:33 | Progress Note ---
Assessment and Plan Acute left limb ischemia s/p Open thrombectomy of left common femoral artery with diagnostic angiography and supervision and interpretation Hypokalemia, now hyperkalemic Acute kidney injury h/o Breast cancer -Continue with anticoagulation -Blood pressure control, add amlodipine and carvedilol -Avoid nephrotoxics, dose all medications for CrCL -PT/OT/Activity -Evaluation for cardio-embolic reason fro acute limb ischemia. -Analgesia/Pain management. -Once she is off the nicradipine infusion, and blood pressure is controlled, ok to transfer telemetry -Cardiology consult notes reviewed. 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 Vitals, labs, medications, chart reviewed. Continues to require nicardipine for blood pressure control No acute overnight events, discussed during ICU-IDT rounds. Objective - Exam Narrative Exam: General appearance: well-developed, well-nourished, not in any distress EENT: ATNC Respiratory: Good AE bilaterlly, CTA Heart: regular, S1S2, no murmurs, gallops or rubs Gastrointestinal: Present: normal. Absent: tenderness, distended Integumentary: no rash, warm and dry Neurologic: no focal deficit, alert and oriented x3 Musculoskeletal: Present: Left groin healing wound, no edema, DP pulses intact Psychiatric: cooperative Vital Signs - 12hr 07/04/18 07/04/18 07/04/18 21:40 21:50 22:00 Temperature Pulse Rate 104 H 100 H 101 H Pulse Rate [ Apical] Respiratory 24 25 H 21 Rate Blood Pressure 159/76 137/78 156/80 O2 Sat by Pulse 97 99 99 Oximetry 07/04/18 07/04/18 07/04/18 22:10 22:20 22:30 Temperature Pulse Rate 103 H 101 H 101 H Pulse Rate [ Apical] Respiratory 18 21 22 Rate Blood Pressure 137/74 153/77 142/79 O2 Sat by Pulse 100 99 99 Oximetry 07/04/18 07/04/18 07/04/18 22:40 22:50 23:00 Temperature Pulse Rate 103 H 101 H 105 H Pulse Rate [ Apical] Respiratory 20 15 22 Rate Blood Pressure 156/80 158/83 158/83 O2 Sat by Pulse 100 99 99 Oximetry 0907/04/18 07/04/18 23:10 23:20 23:30 Temperature Pulse Rate 99 H 103 H 101 H Pulse Rate [ Apical] Respiratory 22 16 19 Rate Blood Pressure 149/83 146/75 159/88 O2 Sat by Pulse 98 96 100 Oximetry 07/04/18 07/04/18 07/04/18 23:38 23:40 23:50 Temperature 99.7 F H Pulse Rate 101 H 102 H Pulse Rate [ Apical] Respiratory 18 20 Rate Blood Pressure 146/75 136/83 O2 Sat by Pulse 100 100 Oximetry 07/05/18 07/05/18 07/05/18 00:00 00:03 00:10 Temperature Pulse Rate 103 H 102 H 103 H Pulse Rate [ 102 H Apical] Respiratory 21 20 20 Rate Blood Pressure 153/82 153/82 136/83 O2 Sat by Pulse 100 99 98 Oximetry 07/05/18 07/05/18 07/05/18 00:12 00:20 00:30 Temperature Pulse Rate 103 H 104 H 103 H Pulse Rate [ Apical] Respiratory 14 27 H 12 Rate Blood Pressure 136/83 136/74 157/93 O2 Sat by Pulse 96 97 97 Oximetry 07/05/18 07/05/18 07/05/18 00:40 00:50 01:00 Temperature Pulse Rate 101 H 102 H 99 H Pulse Rate [ Apical] Respiratory 20 18 21 Rate Blood Pressure 136/74 150/83 157/86 O2 Sat by Pulse 99 99 97 Oximetry 07/05/18 07/05/18 07/05/18 01:10 01:20 01:30 Temperature Pulse Rate 100 H 99 H 98 H Pulse Rate [ Apical] Respiratory 21 20 21 Rate Blood Pressure 157/86 158/83 160/80 O2 Sat by Pulse 97 95 96 Oximetry 07/05/18 07/05/18 07/05/18 01:40 01:50 02:00 Temperature Pulse Rate 98 H 98 H 100 H Pulse Rate [ Apical] Respiratory 24 20 16 Rate Blood Pressure 160/80 177/94 177/94 O2 Sat by Pulse 98 97 98 Oximetry 07/05/18 07/05/18 07/05/18 02:10 02:20 02:30 Temperature Pulse Rate 97 H 98 H 102 H Pulse Rate [ Apical] Respiratory 17 18 21 Rate Blood Pressure 168/82 142/74 150/82 O2 Sat by Pulse 98 98 99 Oximetry 07/05/18 07/05/18 07/05/18 02:40 02:50 03:00 Temperature Pulse Rate 101 H 106 H 96 H Pulse Rate [ Apical] Respiratory 17 19 24 Rate Blood Pressure 150/82 154/76 157/82 O2 Sat by Pulse 98 99 96 Oximetry 07/05/18 07/05/18 07/05/18 03:06 03:10 03:20 Temperature 99.6 F Pulse Rate 99 H 99 H Pulse Rate [ Apical] Respiratory 18 23 Rate Blood Pressure 157/82 171/85 O2 Sat by Pulse 96 97 Oximetry 07/05/18 07/05/18 07/05/18 03:30 03:40 03:50 Temperature Pulse Rate 102 H 100 H 99 H Pulse Rate [ Apical] Respiratory 16 18 20 Rate Blood Pressure 160/78 160/78 135/77 O2 Sat by Pulse 99 98 98 Oximetry 07/05/18 07/05/18 07/05/18 04:00 04:10 04:20 Temperature Pulse Rate 103 H 102 H 104 H Pulse Rate [ 71 Apical] Respiratory 20 20 21 Rate Blood Pressure 170/84 170/84 160/78 O2 Sat by Pulse 99 100 97 Oximetry 07/05/18 07/05/18 07/05/18 04:30 04:40 04:50 Temperature Pulse Rate 102 H 101 H 98 H Pulse Rate [ Apical] Respiratory 19 18 17 Rate Blood Pressure 157/89 157/89 157/89 O2 Sat by Pulse 98 98 98 Oximetry 07/05/18 07/05/18 07/05/18 05:00 05:10 05:20 Temperature Pulse Rate 100 H 100 H 98 H Pulse Rate [ Apical] Respiratory 18 16 17 Rate Blood Pressure 151/77 151/77 146/80 O2 Sat by Pulse 97 98 98 Oximetry 07/05/18 07/05/18 07/05/18 05:30 05:40 05:50 Temperature Pulse Rate 102 H 99 H 100 H Pulse Rate [ Apical] Respiratory 20 18 17 Rate Blood Pressure 170/87 170/87 146/80 O2 Sat by Pulse 98 97 97 Oximetry 07/05/18 07/05/18 07/05/18 06:00 06:10 06:20 Temperature Pulse Rate 100 H 103 H 99 H Pulse Rate [ Apical] Respiratory 18 37 H 18 Rate Blood Pressure 161/80 159/79 161/80 O2 Sat by Pulse 98 97 98 Oximetry 07/05/18 07/05/18 07/05/18 06:30 06:40 06:50 Temperature Pulse Rate 102 H 100 H 103 H Pulse Rate [ Apical] Respiratory 17 17 20 Rate Blood Pressure 176/86 176/86 160/84 O2 Sat by Pulse 98 96 95 Oximetry 07/05/18 07/05/18 07/05/18 07:00 07:10 07:20 Temperature 98 F Pulse Rate 101 H 101 H 99 H Pulse Rate [ Apical] Respiratory 18 33 H 17 Rate Blood Pressure 150/78 150/78 176/86 O2 Sat by Pulse 95 96 95 Oximetry 07/05/18 07/05/18 07/05/18 07:30 07:40 07:50 Temperature Pulse Rate 102 H 100 H 99 H Pulse Rate [ Apical] Respiratory 19 15 22 Rate Blood Pressure 142/101 142/101 155/82 O2 Sat by Pulse 95 90 96 Oximetry 07/05/18 07/05/18 07/05/18 07:51 08:00 08:10 Temperature Pulse Rate 99 H 101 H Pulse Rate [ 99 H Apical] Respiratory 24 20 Rate Blood Pressure 150/76 150/76 O2 Sat by Pulse 96 94 95 Oximetry 07/05/18 07/05/18 07/05/18 08:20 08:30 08:40 Temperature Pulse Rate 100 H 99 H 104 H Pulse Rate [ Apical] Respiratory 19 18 18 Rate Blood Pressure 169/84 176/85 176/85 O2 Sat by Pulse 95 96 96 Oximetry CBC and BMP: 07/05/18 07:55 07/05/18 07:55 ABG, PT/INR, D-dimer: PT/INR, D-dimer PT 14.2 Sec. (12.2-14.9) 07/02/18 15:49 INR 1.05 (0.87-1.13) 07/02/18 15:49 Abnormal lab findings: Abnormal Labs 07/02/18 07/02/18 07/02/18 15:49 15:49 15:49 WBC 12.9 H RBC Hgb Hct MCH MCHC Plt Count Lymph % (Auto) Lymph # Seg Neutrophils % 75.2 H Seg Neutrophils # 9.7 H Heparin Anti-Xa Level Sodium Potassium 2.6 L* Chloride 97.8 L Carbon Dioxide BUN Creatinine Glucose 158 H Calcium Total Creatine Kinase 165 H Urine Creatinine 07/03/18 07/03/18 07/03/18 01:30 05:18 05:18 WBC RBC Hgb Hct MCH MCHC Plt Count Lymph % (Auto) 7.6 L Lymph # 0.8 L Seg Neutrophils % 86.1 H Seg Neutrophils # 9.3 H Heparin Anti-Xa Level 0.94 H Sodium 135 L Potassium 5.8 H D Chloride 95.4 L Carbon Dioxide BUN Creatinine 1.3 H Glucose 222 H Calcium 7.7 L D Total Creatine Kinase Urine Creatinine 07/03/18 07/03/18 07/04/18 10:54 16:26 02:00 WBC RBC Hgb Hct MCH MCHC Plt Count Lymph % (Auto) Lymph # Seg Neutrophils % Seg Neutrophils # Heparin Anti-Xa Level 0.28 L Sodium 129 L Potassium Chloride 95.3 L Carbon Dioxide 20 L BUN 24 H Creatinine 1.8 H Glucose 140 H Calcium 7.3 L Total Creatine Kinase Urine Creatinine 34.8 H 07/04/18 07/04/18 07/04/18 04:18 05:33 08:37 WBC RBC 2.13 L Hgb 5.8 L* D 9.7 L D Hct 18.5 L* D MCH 27 L MCHC Plt Count 92 L Lymph % (Auto) 10.2 L Lymph # 0.7 L Seg Neutrophils % 83.7 H Seg Neutrophils # Heparin Anti-Xa Level Sodium 127 L Potassium Chloride 93.6 L Carbon Dioxide 19 L BUN 28 H Creatinine 2.6 H Glucose 109 H Calcium 7.1 L Total Creatine Kinase Urine Creatinine 07/04/18 07/05/18 07/05/18 19:00 01:31 07:55 WBC 14.3 H RBC 3.63 L Hgb Hct 29.1 L MCH MCHC 35 H Plt Count Lymph % (Auto) 7.2 L Lymph # 1.0 L Seg Neutrophils % 87.5 H Seg Neutrophils # 12.5 H Heparin Anti-Xa Level 0.15 L 0.18 L Sodium Potassium Chloride Carbon Dioxide BUN Creatinine Glucose Calcium Total Creatine Kinase Urine Creatinine 07/05/18 07/05/18 07:55 07:55 WBC RBC Hgb Hct MCH MCHC Plt Count Lymph % (Auto) Lymph # Seg Neutrophils % Seg Neutrophils # Heparin Anti-Xa Level 0.25 L Sodium 132 L Potassium Chloride Carbon Dioxide 17 L BUN 37 H Creatinine 3.5 H Glucose Calcium 7.4 L Total Creatine Kinase Urine Creatinine
[2018-07-05] MEDS ORDERED: NORMODYNE IV PRN (09:43)
[2018-07-05] MEDS ORDERED: COREG PO SCH (10:00)
[2018-07-05] MEDS: PEPCID IV SCH (11:16)
[2018-07-05] MEDS: NORVASC PO SCH (11:20)
--- NOTE | 2018-07-05 11:42 | Consultation ---
History of Present Illness Consult date: 07/05/18 Requesting physician: BEKAH HOWLEL Consult reason: other (Acute Left VOLTAGE INSPECTOR occlusion. Evaluate for cardiac embolic source) History of present illness: The patient claims that on the day of presentation, she experienced what she describes as gas-like pain in her lower back. She claims that she went to the restroom to move her bowel and developed numbness in her left foot and subsequently all over her LLE. She decided to present to the emergency department. Arterial Doppler studies revealed acute left VOLTAGE INSPECTOR occlusion. She subsequently underwent open thrombectomy of the left VOLTAGE INSPECTOR. She denies history of arrhythmias. She has no palpitations or dizziness. On the monitor, she has been in sinus rhythm since admission. Past History Past Medical History: cancer (she has a history of breast cancer. She received chemotherapy and radiation therapy. She claims that she had a recurrence in 2007.), hypertension Past Surgical History: mastectomy (left breast lumpectomy) Social history: lives with family. denies: smoking, alcohol abuse Family history: CAD (her brother suffered a myocardial infarction) Medications and Allergies Allergies Allergy/AdvReac Type Severity Reaction Status Date / Time No Known Allergies Allergy Unverified 07/02/18 16:01 Home Medications Medication Instructions Recorded Confirmed Last Taken Type No Known Home Medications [No 07/05/18 07/05/18 Unknown History Reported Home Medications] Active Meds: Active Medications Amlodipine Besylate (Norvasc) 10 mg PO DAILY [facility] Last Admin: 07/05/18 11:20 Dose: 10 mg Carvedilol (Coreg) 12.5 mg PO BID [facility] Last Admin: 07/05/18 11:21 Dose: 12.5 mg Famotidine (Pepcid) 20 mg IV DAILY [facility] Last Admin: 07/05/18 11:16 Dose: 20 mg Heparin Sodium/Sodium Chloride (Heparin/ 0.45% Nacl-25,000 Unit/500 Ml) 25,000 unit in 500 mls @ 20 mls/hr IV TITR TIARRA; Protocol Last Titration: 07/05/18 02:30 Dose: 1,150 units/hr, 23 mls/hr Sodium Chloride (Nacl 0.9% 1000 Ml) 1,000 mls @ 100 mls/hr IV DIRECT TIARRA Last Admin: 07/04/18 23:37 Dose: 100 mls/hr Nicardipine HCl 50 mg/ Sodium (Chloride) 250 mls @ 25 mls/hr IV TITR TIARRA; Protocol Last Titration: 07/05/18 11:23 Dose: 0 mg/hr, 0 mls/hr Labetalol HCl (Normodyne) 10 mg IV Q6H PRN PRN Reason: SBP > 160 Morphine Sulfate (Morphine) 2 mg IV Q2H PRN PRN Reason: Pain, Moderate (4-6) Last Admin: 07/05/18 11:31 Dose: 2 mg Naloxone HCl (Narcan 0.4 Mg/1 Ml) 0.1 mg IV Q2MIN PRN PRN Reason: Res Rate </= 8 or 02 SAT < 92% Review of Systems Constitutional: no fever, no chills Ears, nose, mouth and throat: no ear pain, no ear discharge, no sore throat Cardiovascular: no chest pain, no palpitations, no lightheadedness, no shortness of breath Respiratory: no cough, no hemoptysis, no shortness of breath Gastrointestinal: no nausea, no vomiting, no diarrhea, no constipation Genitourinary Female: no dysuria, no urinary frequency Rectal: no pain, no bleeding Musculoskeletal: no neck stiffness, no neck pain Integumentary: no rash, no pruritis Neurological: numbness Endocrine: no cold intolerance, no heat intolerance Hematologic/Lymphatic: no easy bruising, no easy bleeding Allergic/Immunologic: no urticaria, no wheezing Physical Examination Vital Signs Last Vital Signs Temp 98 F 07/05/18 07:00 Pulse 106 H 07/05/18 11:21 Resp 18 07/05/18 08:40 BP 153/77 07/05/18 11:21 Pulse Ox 96 07/05/18 08:40 General appearance: no acute distress HEENT: Positive: EOMI, Normocephaly, Mucus Membranes Moist Neck: Positive: neck supple, trachea midline Cardiac: Positive: Reg Rate and Rhythm, S1/S2 Lungs: Positive: clear to auscultation Neuro: Positive: Grossly Intact Abdomen: Positive: Soft, Active Bowel Sounds. Negative: Tender Skin: Positive: Clear. Negative: Rash Musculoskeletal: Normal Range of Motion Extremities: Present: normal. Absent: edema Results 07/05/18 07:55 07/05/18 07:55 CBC 07/05/18 Range/Units 07:55 WBC 14.3 H (4.5-11.0) K/mm3 RBC 3.63 L (3.65-5.03) M/mm3 Hgb 10.1 (10.1-14.3) gm/dl Hct 29.1 L (30.3-42.9) % Plt Count 185 D (140-440) K/mm3 Lymph # 1.0 L (1.2-5.4) K/mm3 [place] # 0.7 (0.0-0.8) K/mm3 Eos # 0.0 (0.0-0.4) K/mm3 Baso # 0.0 (0.0-0.1) K/mm3 Comprehensive Metabolic Panel 07/05/18 Range/Units 07:55 Sodium 132 L (137-145) mmol/L Potassium 3.7 (3.6-5.0) mmol/L Chloride 98.6 (98-107) mmol/L Carbon Dioxide 17 L (22-30) mmol/L BUN 37 H (7-17) mg/dL Creatinine 3.5 H (0.7-1.2) mg/dL Glucose 91 (65-100) mg/dL Calcium 7.4 L (8.4-10.2) mg/dL - Imaging and Cardiology EKG: image reviewed EKG interpretations - Telemetry EKG Rhythm: Sinus Rhythm Chamber hypertrophy or enlargement: left ventricular hypertro Assessment and Plan I will optimize her antihypertensive regimen. Continue intravenous fluids. Schedule ANDREW for tomorrow to assess for cardiac embolic source. - Patient Problems (1) Acute occlusion of artery of lower extremity Onset Date: ~07/02/18 Current Visit: Yes Status: Acute (2) S/P vascular surgery Current Visit: Yes Status: Acute (3) Hypertension Current Visit: Yes Status: Chronic Qualifiers: Hypertension type: essential hypertension Qualified Code(s): I10 - Essential (primary) hypertension (4) Acute kidney injury Current Visit: Yes Status: Acute (5) H/O malignant neoplasm of breast Current Visit: Yes Status: Resolved
--- NOTE | 2018-07-05 12:54 | Progress Note ---
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 Absent: tenderness, distended Integumentary: no rash, warm and dry Neurologic: no focal deficit, alert and oriented x3 Musculoskeletal: Present: other (no edema) Psychiatric: cooperative - Vital Signs Vital signs: Vital Signs - 12hr 07/05/18 07/05/18 07/05/18 01:00 01:10 01:20 Temperature Pulse Rate 99 H 100 H 99 H Pulse Rate [ Apical] Respiratory 21 21 20 Rate Blood Pressure 157/86 157/86 158/83 O2 Sat by Pulse 97 97 95 Oximetry 07/05/18 07/05/18 07/05/18 01:30 01:40 01:50 Temperature Pulse Rate 98 H 98 H 98 H Pulse Rate [ Apical] Respiratory 21 24 20 Rate Blood Pressure 160/80 160/80 177/94 O2 Sat by Pulse 96 98 97 Oximetry 07/05/18 07/05/18 07/05/18 02:00 02:10 02:20 Temperature Pulse Rate 100 H 97 H 98 H Pulse Rate [ Apical] Respiratory 16 17 18 Rate Blood Pressure 177/94 168/82 142/74 O2 Sat by Pulse 98 98 98 Oximetry 07/05/18 07/05/18 07/05/18 02:30 02:40 02:50 Temperature Pulse Rate 102 H 101 H 106 H Pulse Rate [ Apical] Respiratory 21 17 19 Rate Blood Pressure 150/82 150/82 154/76 O2 Sat by Pulse 99 98 99 Oximetry 07/05/18 07/05/18 07/05/18 03:00 03:06 03:10 Temperature 99.6 F Pulse Rate 96 H 99 H Pulse Rate [ Apical] Respiratory 24 18 Rate Blood Pressure 157/82 157/82 O2 Sat by Pulse 96 96 Oximetry 07/05/18 07/05/18 07/05/18 03:20 03:30 03:40 Temperature Pulse Rate 99 H 102 H 100 H Pulse Rate [ Apical] Respiratory 23 16 18 Rate Blood Pressure 171/85 160/78 160/78 O2 Sat by Pulse 97 99 98 Oximetry 07/05/18 07/05/18 07/05/18 03:50 04:00 04:10 Temperature Pulse Rate 99 H 103 H 102 H Pulse Rate [ 71 Apical] Respiratory 20 20 20 Rate Blood Pressure 135/77 170/84 170/84 O2 Sat by Pulse 98 99 100 Oximetry 07/05/18 07/05/18 07/05/18 04:20 04:30 04:40 Temperature Pulse Rate 104 H 102 H 101 H Pulse Rate [ Apical] Respiratory 21 19 18 Rate Blood Pressure 160/78 157/89 157/89 O2 Sat by Pulse 97 98 98 Oximetry 07/05/18 07/05/18 07/05/18 04:50 05:00 05:10 Temperature Pulse Rate 98 H 100 H 100 H Pulse Rate [ Apical] Respiratory 17 18 16 Rate Blood Pressure 157/89 151/77 151/77 O2 Sat by Pulse 98 97 98 Oximetry 07/05/18 07/05/18 07/05/18 05:20 05:30 05:40 Temperature Pulse Rate 98 H 102 H 99 H Pulse Rate [ Apical] Respiratory 17 20 18 Rate Blood Pressure 146/80 170/87 170/87 O2 Sat by Pulse 98 98 97 Oximetry 07/05/18 07/05/18 07/05/18 05:50 06:00 06:10 Temperature Pulse Rate 100 H 100 H 103 H Pulse Rate [ Apical] Respiratory 17 18 37 H Rate Blood Pressure 146/80 161/80 159/79 O2 Sat by Pulse 97 98 97 Oximetry 07/05/18 07/05/18 07/05/18 06:20 06:30 06:40 Temperature Pulse Rate 99 H 102 H 100 H Pulse Rate [ Apical] Respiratory 18 17 17 Rate Blood Pressure 161/80 176/86 176/86 O2 Sat by Pulse 98 98 96 Oximetry 07/05/18 07/05/1818 06:50 07:00 07:10 Temperature 98 F Pulse Rate 103 H 101 H 101 H Pulse Rate [ Apical] Respiratory 20 18 33 H Rate Blood Pressure 160/84 150/78 150/78 O2 Sat by Pulse 95 95 96 Oximetry 07/05/18 07/05/18 07/05/18 07:20 07:30 07:40 Temperature Pulse Rate 99 H 102 H 100 H Pulse Rate [ Apical] Respiratory 17 19 15 Rate Blood Pressure 176/86 142/101 142/101 O2 Sat by Pulse 95 95 90 Oximetry 07/05/18 07/05/18 07/05/18 07:50 07:51 08:00 Temperature Pulse Rate 99 H 99 H Pulse Rate [ 99 H Apical] Respiratory 22 24 Rate Blood Pressure 155/82 150/76 O2 Sat by Pulse 96 96 94 Oximetry 07/05/18 07/05/18 07/05/18 08:10 08:20 08:30 Temperature Pulse Rate 101 H 100 H 99 H Pulse Rate [ Apical] Respiratory 20 19 18 Rate Blood Pressure 150/76 169/84 176/85 O2 Sat by Pulse 95 95 96 Oximetry 07/05/18 07/05/18 07/05/18 08:40 11:20 11:21 Temperature Pulse Rate 104 H 103 H 106 H Pulse Rate [ Apical] Respiratory 18 Rate Blood Pressure 176/85 153/77 153/77 O2 Sat by Pulse 96 Oximetry - Lab 07/05/18 07:55 07/05/18 07:55 Most recent lab results Calcium 7.4 mg/dL (8.4-10.2) L 07/05/18 07:55 Urine Creatinine 34.8 mg/dL (0.1-20.0) H 07/04/18 02:00 Urine Sodium 92 mmol/L 07/04/18 02:00
[2018-07-05] MEDS: NACL 0.9% 1000 ML 1,000 ML IV SCH ×2 (13:13→23:50)
[2018-07-05] MEDS ORDERED: APRESOLINE PO SCH (14:00)
--- NOTE | 2018-07-05 17:53 | Progress Note ---
Assessment and Plan Will transfer her out of ICU tomorrow. Continue supportive care. When renal function improves, will search for additional sources for embolization. 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 Feet well perfused. Now with ARF. Followed by nephrology. scheduled for ANDREW for source of embolus tomorrow. Objective - Constitutional Vitals: Vital Signs - 12hr 07/05/18 07/05/18 07/05/18 05:30 05:40 05:50 Temperature Pulse Rate 102 H 99 H 100 H Pulse Rate [ Apical] Respiratory 20 18 17 Rate Blood Pressure 170/87 170/87 146/80 O2 Sat by Pulse 98 97 97 Oximetry 07/05/18 07/05/18 07/05/18 06:00 06:10 06:20 Temperature Pulse Rate 100 H 103 H 99 H Pulse Rate [ Apical] Respiratory 18 37 H 18 Rate Blood Pressure 161/80 159/79 161/80 O2 Sat by Pulse 98 97 98 Oximetry 07/05/18 07/05/18 07/05/18 06:30 06:40 06:50 Temperature Pulse Rate 102 H 100 H 103 H Pulse Rate [ Apical] Respiratory 17 17 20 Rate Blood Pressure 176/86 176/86 160/84 O2 Sat by Pulse 98 96 95 Oximetry 07/05/18 07/05/18 07/05/18 07:00 07:10 07:20 Temperature 98 F Pulse Rate 101 H 101 H 99 H Pulse Rate [ Apical] Respiratory 18 33 H 17 Rate Blood Pressure 150/78 150/78 176/86 O2 Sat by Pulse 95 96 95 Oximetry 07/05/18 07/05/18 07/05/18 07:30 07:40 07:50 Temperature Pulse Rate 102 H 100 H 99 H Pulse Rate [ Apical] Respiratory 19 15 22 Rate Blood Pressure 142/101 142/101 155/82 O2 Sat by Pulse 95 90 96 Oximetry 07/05/18 07/05/18 07/05/18 07:51 08:00 08:10 Temperature Pulse Rate 99 H 101 H Pulse Rate [ 99 H Apical] Respiratory 24 20 Rate Blood Pressure 150/76 150/76 O2 Sat by Pulse 96 94 95 Oximetry 07/05/18 07/05/18 07/05/18 08:20 08:30 08:40 Temperature Pulse Rate 100 H 99 H 104 H Pulse Rate [ Apical] Respiratory 19 18 18 Rate Blood Pressure 169/84 176/85 176/85 O2 Sat by Pulse 95 96 96 Oximetry 07/05/18 07/05/18 07/05/18 08:50 09:00 09:10 Temperature Pulse Rate 100 H 100 H 97 H Pulse Rate [ Apical] Respiratory 18 18 17 Rate Blood Pressure 159/87 152/81 152/81 O2 Sat by Pulse 95 96 96 Oximetry 07/05/18 07/05/18 07/05/18 09:20 09:30 09:40 Temperature Pulse Rate 101 H 102 H 110 H Pulse Rate [ Apical] Respiratory 18 17 13 Rate Blood Pressure 146/79 150/80 150/80 O2 Sat by Pulse 96 96 90 Oximetry 07/05/18 07/05/18 07/05/18 09:50 10:00 10:10 Temperature Pulse Rate 105 H 103 H 105 H Pulse Rate [ Apical] Respiratory 22 15 25 H Rate Blood Pressure 159/83 148/76 148/76 O2 Sat by Pulse 98 94 97 Oximetry 07/05/18 07/05/18 07/05/18 10:20 10:30 10:40 Temperature Pulse Rate 104 H 105 H 104 H Pulse Rate [ Apical] Respiratory 22 21 17 Rate Blood Pressure 161/83 161/80 137/80 O2 Sat by Pulse 96 94 Oximetry 07/05/18 07/05/18 07/05/18 10:50 11:00 11:10 Temperature 98.2 F Pulse Rate 103 H 105 H 104 H Pulse Rate [ Apical] Respiratory 17 22 27 H Rate Blood Pressure 114/87 112/91 112/91 O2 Sat by Pulse 91 93 90 Oximetry 07/05/18 07/05/18 07/05/18 11:20 11:21 11:30 Temperature Pulse Rate 103 H 106 H 99 H Pulse Rate [ Apical] Respiratory 20 23 Rate Blood Pressure 153/77 153/77 154/85 O2 Sat by Pulse 96 95 Oximetry 07/05/18 07/05/18 07/05/18 11:40 11:50 12:00 Temperature Pulse Rate 103 H 101 H 101 H Pulse Rate [ 101 H Apical] Respiratory 21 21 18 Rate Blood Pressure 154/85 188/78 183/85 O2 Sat by Pulse 96 94 99 Oximetry 07/05/18 07/05/18 07/05/18 12:10 12:20 12:30 Temperature Pulse Rate 99 H 98 H 97 H Pulse Rate [ Apical] Respiratory 16 16 17 Rate Blood Pressure 183/85 161/83 154/85 O2 Sat by Pulse 95 95 95 Oximetry 07/05/18 07/05/18 07/05/18 12:40 12:50 13:00 Temperature Pulse Rate 99 H 88 87 Pulse Rate [ Apical] Respiratory 18 16 16 Rate Blood Pressure 154/85 160/82 141/80 O2 Sat by Pulse 95 95 95 Oximetry 07/05/18 07/05/18 07/05/18 13:10 13:20 13:30 Temperature Pulse Rate 89 86 83 Pulse Rate [ Apical] Respiratory 17 17 15 Rate Blood Pressure 141/80 135/75 136/71 O2 Sat by Pulse 94 94 94 Oximetry 07/05/18 07/05/18 07/05/18 13:40 13:50 14:00 Temperature Pulse Rate 82 89 89 Pulse Rate [ Apical] Respiratory 17 22 23 Rate Blood Pressure 136/71 148/83 130/80 O2 Sat by Pulse 94 94 95 Oximetry 07/05/18 07/05/18 07/05/18 14:10 14:20 14:30 Temperature Pulse Rate 88 82 79 Pulse Rate [ Apical] Respiratory 21 19 18 Rate Blood Pressure 130/80 144/78 138/76 O2 Sat by Pulse 95 94 95 Oximetry 07/05/18 07/05/18 07/05/18 14:40 14:50 15:00 Temperature 98 F Pulse Rate 81 84 83 Pulse Rate [ Apical] Respiratory 21 21 23 Rate Blood Pressure 138/76 141/72 131/72 O2 Sat by Pulse 95 95 95 Oximetry 07/05/18 07/05/18 07/05/18 15:14 15:20 15:30 Temperature Pulse Rate 80 80 79 Pulse Rate [ Apical] Respiratory 24 19 19 Rate Blood Pressure 131/72 127/68 124/68 O2 Sat by Pulse Oximetry 07/05/18 07/05/18 07/05/18 15:40 15:50 16:00 Temperature Pulse Rate 81 78 79 Pulse Rate [ 78 Apical] Respiratory 19 18 18 Rate Blood Pressure 131/72 134/65 128/69 O2 Sat by Pulse 97 Oximetry 07/05/18 07/05/18 07/05/18 16:10 16:20 16:30 Temperature Pulse Rate 77 78 78 Pulse Rate [ Apical] Respiratory 17 17 16 Rate Blood Pressure 134/65 119/64 115/64 O2 Sat by Pulse Oximetry General appearance: Present: no acute distress - EENT Eyes: EOM intact ENT: hearing intact - Neck Neck: supple, normal ROM - Respiratory Respiratory effort: normal - Breasts Breasts: deferred Extremities: abnormal Extremity abnormal: edema - Gastrointestinal General gastrointestinal: Present: deferred Rectal Exam: deferred - Genitourinary Female genitourinary: deferred - Neurologic Neurologic: CNII-XII intact - Psychiatric Psychiatric: appropriate mood/affect, cooperative - Labs CBC & Chem 7: 07/05/18 07:55 07/05/18 07:55 Labs: Abnormal lab results 07/04/18 07/05/18 07/05/18 Range/Units 19:00 01:31 07:55 WBC 14.3 H (4.5-11.0) K/mm3 RBC 3.63 L (3.65-5.03) M/mm3 Hct 29.1 L (30.3-42.9) % MCHC 35 H (30-34) % Lymph % (Auto) 7.2 L (13.4-35.0) % Lymph # 1.0 L (1.2-5.4) K/mm3 Seg Neutrophils % 87.5 H (40.0-70.0) % Seg Neutrophils # 12.5 H (1.8-7.7) K/mm3 Heparin Anti-Xa Level 0.15 L 0.18 L (0.3-0.7) U.I./ml Sodium (137-145) mmol/L Carbon Dioxide (22-30) mmol/L BUN (7-17) mg/dL Creatinine (0.7-1.2) mg/dL Calcium (8.4-10.2) mg/dL 07/05/18 07/05/18 Range/Units 07:55 07:55 WBC (4.5-11.0) K/mm3 RBC (3.65-5.03) M/mm3 Hct (30.3-42.9) % MCHC (30-34) % Lymph % (Auto) (13.4-35.0) % Lymph # (1.2-5.4) K/mm3 Seg Neutrophils % (40.0-70.0) % Seg Neutrophils # (1.8-7.7) K/mm3 Heparin Anti-Xa Level 0.25 L (0.3-0.7) U.I./ml Sodium 132 L (137-145) mmol/L Carbon Dioxide 17 L (22-30) mmol/L BUN 37 H (7-17) mg/dL Creatinine 3.5 H (0.7-1.2) mg/dL Calcium 7.4 L (8.4-10.2) mg/dL
--- NOTE | 2018-07-05 21:27 | Cat Scan Report ---
FINAL REPORT PROCEDURE: CT HEAD/BRAIN WO CON TECHNIQUE: Computerized tomography of the head was performed without contrast material. HISTORY: stroke symptom COMPARISON: No prior studies are available for comparison. FINDINGS: Skull and scalp: Normal. Paranasal sinuses: Normal. Ventricles and subarachnoid spaces: Are prominent consistent with cerebral atrophy appropriate for patient's age.. Cerebrum: Old lacunar infarcts are noted in bilateral basal ganglia. An acute intra-axial or extra-axial hemorrhage or mass effect is not identified. Cerebellum and brainstem: No evidence of hemorrhage, acute infarction or mass. Vasculature: Atherosclerotic calcification is noted involving internal carotid and vertebral arteries.. Comments: None. IMPRESSION: No acute intracranial abnormality Old lacunar infarcts bilateral basal ganglia
[2018-07-05] MEDS: COREG PO SCH (22:14)
[2018-07-05] MEDS: HEPARIN/ 0.45% NACL-25,000 UNIT/500 ML 25,000 UNIT/500 ML BAG IV SCH (22:25)
[2018-07-06 02:48] LABS: Basophils % (Auto) 0.2 % (0.0-1.8); Eosinophils # (Auto) 0.1 K/mm3 (0.0-0.4); Eosinophils % (Auto) 0.6 % (0.0-4.3); Hematocrit 25.7 % (30.3-42.9); Hemoglobin 8.6 gm/dl (10.1-14.3); Lymphocytes # (Auto) 1.2 K/mm3 (1.2-5.4); Lymphocytes % (Auto) 10.4 % (13.4-35.0); Mean Corpuscular HGB Conc 33 % (30-34); Mean Corpuscular Hemoglobin 28 pg (28-32); Mean Corpuscular Volume 83 fl (79-97); Monocytes # (Auto) 0.7 K/mm3 (0.0-0.8); Monocytes % (Auto) 6.1 % (0.0-7.3); Platelet Count 190 K/mm3 (140-440); Red Blood Count 3.11 M/mm3 (3.65-5.03); Red Cell Distribution Width 14.6 % (13.2-15.2)
[2018-07-06 03:04] LABS: Calcium 7.4 mg/dL (8.4-10.2)
--- NOTE | 2018-07-06 08:25 | Progress Note ---
Assessment and Plan Patient will be scheduled for a carotid duplex. Appreciate consultants input. The patient continues to have worsening renal failure as well. 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 Last night, the patient experienced a transient episode of right- sided weakness and right facial drooping. A CT scan was performed which demonstrates no acute findings. On examination morning, the patient's right- sided weakness appears to have resolved. Patient is scheduled for a ANDREW this morning Objective - Constitutional Vitals: Vital Signs - 12hr 07/05/18 07/05/18 07/05/18 21:24 22:00 23:00 Temperature Pulse Rate 82 81 Pulse Rate [ Apical] Respiratory 17 16 Rate Blood Pressure 144/74 142/69 131/70 O2 Sat by Pulse 97 100 Oximetry 07/06/18 07/06/18 07/06/18 00:00 00:06 00:15 Temperature 97.1 F L Pulse Rate 87 80 78 Pulse Rate [ 81 Apical] Respiratory 21 15 15 Rate Blood Pressure 147/73 140/74 130/76 O2 Sat by Pulse 97 99 97 Oximetry 07/06/18 07/06/18 07/06/18 00:30 00:45 01:00 Temperature Pulse Rate 75 76 85 Pulse Rate [ Apical] Respiratory 15 15 16 Rate Blood Pressure 139/80 125/63 125/63 O2 Sat by Pulse 97 97 97 Oximetry 07/06/18 07/06/18 07/06/18 01:15 01:30 01:45 Temperature Pulse Rate 82 78 82 Pulse Rate [ Apical] Respiratory 16 17 18 Rate Blood Pressure 133/73 140/67 148/72 O2 Sat by Pulse 99 98 97 Oximetry 07/06/18 07/06/18 07/06/18 02:00 02:15 02:30 Temperature Pulse Rate 76 79 81 Pulse Rate [ Apical] Respiratory 18 16 17 Rate Blood Pressure 148/72 130/68 142/76 O2 Sat by Pulse 97 96 97 Oximetry 07/06/18 07/06/18 07/06/18 02:45 03:00 03:15 Temperature Pulse Rate 77 76 80 Pulse Rate [ Apical] Respiratory 15 14 17 Rate Blood Pressure 125/67 125/67 130/69 O2 Sat by Pulse 97 98 97 Oximetry 07/06/18 07/06/1818 03:30 03:45 04:00 Temperature Pulse Rate 77 82 78 Pulse Rate [ 78 Apical] Respiratory 15 16 15 Rate Blood Pressure 121/62 134/68 134/68 O2 Sat by Pulse 96 97 97 Oximetry 07/06/18 07/06/18 07/06/18 04:15 04:30 04:45 Temperature Pulse Rate 77 74 76 Pulse Rate [ Apical] Respiratory 15 15 15 Rate Blood Pressure 124/64 133/64 123/65 O2 Sat by Pulse 96 97 98 Oximetry 07/06/18 07/06/18 07/06/18 05:00 05:15 05:30 Temperature Pulse Rate 81 75 74 Pulse Rate [ Apical] Respiratory 25 H 14 15 Rate Blood Pressure 123/65 128/63 120/62 O2 Sat by Pulse 98 97 97 Oximetry 07/06/18 07/06/18 07/06/18 05:46 06:00 06:16 Temperature Pulse Rate 80 77 Pulse Rate [ Apical] Respiratory 12 18 Rate Blood Pressure 144/72 144/72 138/66 O2 Sat by Pulse 96 98 97 Oximetry General appearance: Present: no acute distress - EENT Eyes: PERRL ENT: hearing intact - Neck Neck: supple, normal ROM - Respiratory Respiratory effort: normal Extremities: no ischemia - Gastrointestinal General gastrointestinal: Present: deferred - Genitourinary Female genitourinary: deferred - Integumentary Integumentary: clear, warm - Neurologic Neurologic: no focal deficits - Psychiatric Psychiatric: appropriate mood/affect, cooperative - Labs CBC & Chem 7: 07/06/18 02:25 07/06/18 02:25 Labs: Abnormal lab results 07/05/18 07/05/18 07/05/18 Range/Units 07:55 07:55 07:55 WBC 14.3 H (4.5-11.0) K/mm3 RBC 3.63 L (3.65-5.03) M/mm3 Hgb (10.1-14.3) gm/dl Hct 29.1 L (30.3-42.9) % MCHC 35 H (30-34) % Lymph % (Auto) 7.2 L (13.4-35.0) % Lymph # 1.0 L (1.2-5.4) K/mm3 Seg Neutrophils % 87.5 H (40.0-70.0) % Seg Neutrophils # 12.5 H (1.8-7.7) K/mm3 Heparin Anti-Xa Level 0.25 L (0.3-0.7) U.I./ml Sodium 132 L (137-145) mmol/L Chloride (98-107) mmol/L Carbon Dioxide 17 L (22-30) mmol/L BUN 37 H (7-17) mg/dL Creatinine 3.5 H (0.7-1.2) mg/dL Calcium 7.4 L (8.4-10.2) mg/dL 07/05/18 07/06/18 07/06/18 Range/Units 19:03 02:25 02:25 WBC 11.4 H (4.5-11.0) K/mm3 RBC 3.11 L (3.65-5.03) M/mm3 Hgb 8.6 L (10.1-14.3) gm/dl Hct 25.7 L (30.3-42.9) % MCHC (30-34) % Lymph % (Auto) 10.4 L (13.4-35.0) % Lymph # (1.2-5.4) K/mm3 Seg Neutrophils % 82.7 H (40.0-70.0) % Seg Neutrophils # 9.5 H (1.8-7.7) K/mm3 Heparin Anti-Xa Level 0.27 L (0.3-0.7) U.I./ml Sodium 130 L (137-145) mmol/L Chloride 97.8 L (98-107) mmol/L Carbon Dioxide 17 L (22-30) mmol/L BUN 46 H (7-17) mg/dL Creatinine 3.9 H (0.7-1.2) mg/dL Calcium 7.4 L (8.4-10.2) mg/dL
--- NOTE | 2018-07-06 09:27 | Progress Note ---
Assessment and Plan Impression: * Acute kidney injury most likely secondary to contrast induced nephropathy * Embolization to left common femoral artery --s/p Open thrombectomy of left common femoral artery with diagnostic angiography * Hyponatremia * Hypertension * metabolic acidosis * aortic disecction Plan: * No indication for renal replacement therapy, likely JJ and dissection * transfer to [place] plans noted * Continue IVF - NS--na is better * cr is worse today, suspect atn from JJ, will need cmm technician if no improvement next 24 to 36 hrs * continue to wean cardene for bp control * keep map greater than 65 * Anticoagulation per vascular surgery * Dose medications for renal function * Avoid potential nephrotoxins * AM labs ordered Subjective Date of service: 07/06/18 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 Absent: tenderness, distended Integumentary: no rash, warm and dry Neurologic: no focal deficit, alert and oriented x3 Musculoskeletal: Present: other (no edema) Psychiatric: cooperative - Vital Signs Vital signs: Vital Signs - 12hr 07/05/18 07/05/18 07/06/18 22:00 23:00 00:00 Temperature 97.1 F L Pulse Rate 82 81 87 Pulse Rate [ 81 Apical] Respiratory 17 16 21 Rate Blood Pressure 142/69 131/70 147/73 O2 Sat by Pulse 97 100 97 Oximetry 07/06/18 07/06/18 07/06/18 00:06 00:15 00:30 Temperature Pulse Rate 80 78 75 Pulse Rate [ Apical] Respiratory 15 15 15 Rate Blood Pressure 140/74 130/76 139/80 O2 Sat by Pulse 99 97 97 Oximetry 07/06/18 07/06/18 07/06/18 00:45 01:00 01:15 Temperature Pulse Rate 76 85 82 Pulse Rate [ Apical] Respiratory 15 16 16 Rate Blood Pressure 125/63 125/63 133/73 O2 Sat by Pulse 97 97 99 Oximetry 07/06/18 07/06/18 07/06/18 01:30 01:45 02:00 Temperature Pulse Rate 78 82 76 Pulse Rate [ Apical] Respiratory 17 18 18 Rate Blood Pressure 140/67 148/72 148/72 O2 Sat by Pulse 98 97 97 Oximetry 07/06/18 07/06/18 07/06/18 02:15 02:30 02:45 Temperature Pulse Rate 79 81 77 Pulse Rate [ Apical] Respiratory 16 17 15 Rate Blood Pressure 130/68 142/76 125/67 O2 Sat by Pulse 96 97 97 Oximetry 07/06/18 07/06/18 07/06/18 03:00 03:15 03:30 Temperature Pulse Rate 76 80 77 Pulse Rate [ Apical] Respiratory 14 17 15 Rate Blood Pressure 125/67 130/69 121/62 O2 Sat by Pulse 98 97 96 Oximetry 07/06/18 07/06/18 07/06/18 03:45 04:00 04:15 Temperature Pulse Rate 82 78 77 Pulse Rate [ 78 Apical] Respiratory 16 15 15 Rate Blood Pressure 134/68 134/68 124/64 O2 Sat by Pulse 97 97 96 Oximetry 07/06/18 07/06/18 07/06/18 04:30 04:45 05:00 Temperature Pulse Rate 74 76 81 Pulse Rate [ Apical] Respiratory 15 15 25 H Rate Blood Pressure 133/64 123/65 123/65 O2 Sat by Pulse 97 98 98 Oximetry 07/06/18 07/06/18 07/06/18 05:15 05:30 05:46 Temperature Pulse Rate 75 74 80 Pulse Rate [ Apical] Respiratory 14 15 12 Rate Blood Pressure 128/63 120/62 144/72 O2 Sat by Pulse 97 97 96 Oximetry 07/06/18 07/06/18 07/06/18 06:00 06:16 08:42 Temperature Pulse Rate 77 Pulse Rate [ Apical] Respiratory 18 Rate Blood Pressure 144/72 138/66 O2 Sat by Pulse 98 97 97 Oximetry - Lab 07/06/18 02:25 07/06/18 02:25 Most recent lab results Calcium 7.4 mg/dL (8.4-10.2) L 07/06/18 02:25 Urine Creatinine 34.8 mg/dL (0.1-20.0) H 07/04/18 02:00 Urine Sodium 92 mmol/L 07/04/18 02:00
[2018-07-06] MEDS ORDERED: PEPCID PO SCH (10:00)
[2018-07-06] MEDS ORDERED: HURRICAINE ONE 20% TOPICAL SPRAY MM SCH (11:00)
[2018-07-06] MEDS ORDERED: DIPRIVAN 10 MG/ML IV ONE ×2 (11:08)
--- NOTE | 2018-07-06 11:37 | Progress Note ---
Assessment and Plan Aortic Dissection (Type B) Acute left limb ischemia (s/p Open thrombectomy of left common femoral artery with diagnostic angiography and supervision and interpretation) Acute kidney injury h/o Breast cancer Anemia (normocytic) Hyperkalemia - CT brain negative - changed to esmolol drip; target SBP 100-120 mmHg; target pulse 60 (if clinically tolerable) - IV heparin stopped - good analgesia - to transfer to [place] - continue full anticoagulation with IV heparin and transition per vascular team - continue supplemental oxygen as needed to keep O2 Sats > 90% - serial H&H - vascular checks per RN - CXR reviewed - PT/OT - continue to avoid nephrotoxics, dose all medications for CrCL - Evaluation for cardio-embolic reason fro acute limb ischemia. - prn Analgesia for pain management. - Once she is off the nicradipine infusion, and blood pressure is controlled, ok to transfer telemetry - Cardiology consult notes reviewed - continue other care per attending / other consultants The high probability of a clinically significant, sudden or life-threatening deterioration of the [cardiac, vascular] system(s) required my full and direct attention, intervention and personal management. The aggregate critical care time was [40] minutes without overlap. Time includes spent on; [x] Data Review and interpretation [x] Patient assessment and monitoring of vital signs [x] Documentation [x] Medication orders and management Subjective Date of service: 07/06/18 Principal diagnosis: Aortic Dissection; Acute left limb ischemia; Acute kidney injury; TIA Interval history: Patient is seen today for: Aortic Dissection; Acute left limb ischemia; Acute kidney injury; h/o Breast cancer; Anemia (normocytic) Seen and examined at bedside; 24hour events reviewed; nursing and respiratory care staff consulted; no adverse overnight events reported to me; resting peacefully in bed; episode of AMS yesterday and right hemiparesis led to code stroke being called; CT brain negative; ANDREW today however demonstrates descending aortic dissection; she denies acute chest pains or palpitations Objective Vital Signs - 12hr 07/06/18 07/06/18 07/06/18 00:00 00:06 00:15 Temperature 97.1 F L Pulse Rate 87 80 78 Pulse Rate [ 81 Apical] Respiratory 21 15 15 Rate Blood Pressure 147/73 140/74 130/76 O2 Sat by Pulse 97 99 97 Oximetry 07/06/18 07/06/18 07/06/18 00:30 00:45 01:00 Temperature Pulse Rate 75 76 85 Pulse Rate [ Apical] Respiratory 15 15 16 Rate Blood Pressure 139/80 125/63 125/63 O2 Sat by Pulse 97 97 97 Oximetry 07/06/18 07/06/18 07/06/18 01:15 01:30 01:45 Temperature Pulse Rate 82 78 82 Pulse Rate [ Apical] Respiratory 16 17 18 Rate Blood Pressure 133/73 140/67 148/72 O2 Sat by Pulse 99 98 97 Oximetry 07/06/18 07/06/18 07/06/18 02:00 02:15 02:30 Temperature Pulse Rate 76 79 81 Pulse Rate [ Apical] Respiratory 18 16 17 Rate Blood Pressure 148/72 130/68 142/76 O2 Sat by Pulse 97 96 97 Oximetry 07/06/18 07/06/18 07/06/18 02:45 03:00 03:15 Temperature Pulse Rate 77 76 80 Pulse Rate [ Apical] Respiratory 15 14 17 Rate Blood Pressure 125/67 125/67 130/69 O2 Sat by Pulse 97 98 97 Oximetry 07/06/18 07/06/18 07/06/18 03:30 03:45 04:00 Temperature Pulse Rate 77 82 78 Pulse Rate [ 78 Apical] Respiratory 15 16 15 Rate Blood Pressure 121/62 134/68 134/68 O2 Sat by Pulse 96 97 97 Oximetry 07/06/18 07/06/18 07/06/18 04:15 04:30 04:45 Temperature Pulse Rate 77 74 76 Pulse Rate [ Apical] Respiratory 15 15 15 Rate Blood Pressure 124/64 133/64 123/65 O2 Sat by Pulse 96 97 98 Oximetry 07/06/18 07/06/18 07/06/18 05:00 05:15 05:30 Temperature Pulse Rate 81 75 74 Pulse Rate [ Apical] Respiratory 25 H 14 15 Rate Blood Pressure 123/65 128/63 120/62 O2 Sat by Pulse 98 97 97 Oximetry 07/06/18 07/06/18 07/06/18 05:46 06:00 06:16 Temperature Pulse Rate 80 77 Pulse Rate [ Apical] Respiratory 12 18 Rate Blood Pressure 144/72 144/72 138/66 O2 Sat by Pulse 96 98 97 Oximetry 07/06/18 07/06/18 07/06/18 06:30 06:45 07:00 Temperature Pulse Rate Pulse Rate [ Apical] Respiratory Rate Blood Pressure 138/66 133/68 127/63 O2 Sat by Pulse 99 97 97 Oximetry 07/06/18 07/06/18 07/06/18 07:16 07:30 07:45 Temperature Pulse Rate 86 78 78 Pulse Rate [ Apical] Respiratory 21 18 18 Rate Blood Pressure 139/69 139/69 145/64 O2 Sat by Pulse 95 94 74 L Oximetry 07/06/18 07/06/18 07/06/18 08:00 08:15 08:30 Temperature Pulse Rate 76 76 82 Pulse Rate [ Apical] Respiratory 15 16 16 Rate Blood Pressure 145/64 143/68 130/65 O2 Sat by Pulse 79 L 98 Oximetry 07/06/18 07/06/18 07/06/18 08:42 08:45 09:00 Temperature Pulse Rate 77 79 Pulse Rate [ Apical] Respiratory 27 H 17 Rate Blood Pressure 151/71 143/68 O2 Sat by Pulse 97 98 98 Oximetry 07/06/18 07/06/18 07/06/18 09:15 09:30 09:45 Temperature Pulse Rate 83 77 77 Pulse Rate [ Apical] Respiratory 19 14 16 Rate Blood Pressure 150/82 151/71 151/74 O2 Sat by Pulse 98 99 97 Oximetry 07/06/18 07/06/18 07/06/18 10:00 10:16 10:30 Temperature Pulse Rate 82 79 78 Pulse Rate [ Apical] Respiratory 15 17 14 Rate Blood Pressure 147/73 147/73 156/79 O2 Sat by Pulse 97 98 98 Oximetry 07/06/18 07/06/18 10:46 11:00 Temperature Pulse Rate 75 78 Pulse Rate [ Apical] Respiratory 15 16 Rate Blood Pressure 144/73 156/67 O2 Sat by Pulse 97 98 Oximetry Constitutional: no acute distress, alert, other (elderly obese AAF, normocephalic and atraumatic) Eyes: non-icteric ENT: oropharynx moist, other (Mallampati 3) Neck: supple, no lymphadenopathy, no JVD, other (no thyromegaly) Effort: mildly labored Ascultation: Bilateral: clear, diminished breath sounds (in bases) Percussion: Bilateral: not dull Cardiovascular: regular rate and rhythm, other (No R/M) Gastrointestinal: normoactive bowel sounds, soft, non-tender, non-distended, other (No HSM) Integumentary: other (post-op surgical wound) Extremities: no cyanosis, pink and warm, no ischemia or petechiae, edema (mild to left leg) Neurologic: normal mental status, non-focal exam, pupils equal and round, motor strength normal and Psychiatric: mood appropriate, affect normal CBC and BMP: 07/06/18 02:25 07/06/18 02:25 ABG, PT/INR, D-dimer: PT/INR, D-dimer PT 14.2 Sec. (12.2-14.9) 07/02/18 15:49 INR 1.05 (0.87-1.13) 07/02/18 15:49 Abnormal lab findings: Abnormal Labs 07/02/18 07/02/18 07/02/18 15:49 15:49 15:49 WBC 12.9 H RBC Hgb Hct MCH MCHC Plt Count Lymph % (Auto) Lymph # Seg Neutrophils % 75.2 H Seg Neutrophils # 9.7 H Heparin Anti-Xa Level Sodium Potassium 2.6 L* Chloride 97.8 L Carbon Dioxide BUN Creatinine Glucose 158 H Calcium Total Creatine Kinase 165 H Urine Creatinine 07/03/18 07/03/18 07/03/18 01:30 05:18 05:18 WBC RBC Hgb Hct MCH MCHC Plt Count Lymph % (Auto) 7.6 L Lymph # 0.8 L Seg Neutrophils % 86.1 H Seg Neutrophils # 9.3 H Heparin Anti-Xa Level 0.94 H Sodium 135 L Potassium 5.8 H D Chloride 95.4 L Carbon Dioxide BUN Creatinine 1.3 H Glucose 222 H Calcium 7.7 L D Total Creatine Kinase Urine Creatinine 07/03/18 07/03/18 07/04/18 10:54 16:26 02:00 WBC RBC Hgb Hct MCH MCHC Plt Count Lymph % (Auto) Lymph # Seg Neutrophils % Seg Neutrophils # Heparin Anti-Xa Level 0.28 L Sodium 129 L Potassium Chloride 95.3 L Carbon Dioxide 20 L BUN 24 H Creatinine 1.8 H Glucose 140 H Calcium 7.3 L Total Creatine Kinase Urine Creatinine 34.8 H 07/04/18 07/04/18 07/04/18 04:18 05:33 08:37 WBC RBC 2.13 L Hgb 5.8 L* D 9.7 L D Hct 18.5 L* D MCH 27 L MCHC Plt Count 92 L Lymph % (Auto) 10.2 L Lymph # 0.7 L Seg Neutrophils % 83.7 H Seg Neutrophils # Heparin Anti-Xa Level Sodium 127 L Potassium Chloride 93.6 L Carbon Dioxide 19 L BUN 28 H Creatinine 2.6 H Glucose 109 H Calcium 7.1 L Total Creatine Kinase Urine Creatinine 07/04/18 07/05/18 07/05/18 19:00 01:31 07:55 WBC 14.3 H RBC 3.63 L Hgb Hct 29.1 L MCH MCHC 35 H Plt Count Lymph % (Auto) 7.2 L Lymph # 1.0 L Seg Neutrophils % 87.5 H Seg Neutrophils # 12.5 H Heparin Anti-Xa Level 0.15 L 0.18 L Sodium Potassium Chloride Carbon Dioxide BUN Creatinine Glucose Calcium Total Creatine Kinase Urine Creatinine 07/05/18 07/05/18 07/05/18 07:55 07:55 19:03 WBC RBC Hgb Hct MCH MCHC Plt Count Lymph % (Auto) Lymph # Seg Neutrophils % Seg Neutrophils # Heparin Anti-Xa Level 0.25 L 0.27 L Sodium 132 L Potassium Chloride Carbon Dioxide 17 L BUN 37 H Creatinine 3.5 H Glucose Calcium 7.4 L Total Creatine Kinase Urine Creatinine 07/06/18 07/06/18 07/06/18 02:25 02:25 09:00 WBC 11.4 H RBC 3.11 L Hgb 8.6 L Hct 25.7 L MCH MCHC Plt Count Lymph % (Auto) 10.4 L Lymph # Seg Neutrophils % 82.7 H Seg Neutrophils # 9.5 H Heparin Anti-Xa Level 0.25 L Sodium 130 L Potassium Chloride 97.8 L Carbon Dioxide 17 L BUN 46 H Creatinine 3.9 H Glucose Calcium 7.4 L Total Creatine Kinase Urine Creatinine Chest x-ray: image reviewed (severe rotation to right; ? mild interstitial edema / left pleural effusion) Allied health notes reviewed: nursing
--- NOTE | 2018-07-06 12:05 | Anesthesia Day of Surgery ---
Anesthesia Day of Surgery - Day of Surgery Patient Examined: Yes Patient H&P Reviewed: Yes Patient is NPO: Yes
--- NOTE | 2018-07-06 12:05 | Anesthesia Consultation ---
Anesthesia Consult and Med Hx Date of service: 07/06/18 - Airway ROM Head & Neck: Adequate Mental/Hyoid Distance: Adequate Mallampati Class: Class III Intubation Access Assessment: Possibly Difficult - Pulmonary Exam CTA: Yes - Cardiac Exam Cardiac Exam: RRR - Pre-Operative Health Status ASA Pre-Surgery Classification: ASA3 Proposed Anesthetic Plan: MAC - Pulmonary Hx Asthma: No Hx Pneumonia: No - Cardiovascular System Hx Hypertension: Yes (significant HTN on admission req cardene gtt; now improved ) Hx Heart Attack/AMI: No - Central Nervous System Hx Seizures: No CVA: No - Endocrine Hx Renal Disease: Yes (NUYRS) Hx Liver Disease: No - Other Systems Hx Cancer: Yes (Left breast Cancer) - Additional Comments Anesthesia Medical History Comments: Presented with acute arterial occlusion. Now scheduled for ANDREW with bubble study in ICU under sedation.
--- NOTE | 2018-07-06 12:16 | Progress Note ---
Assessment and Plan S/p ANDREW this AM which revealed descending aortic dissection. D/w Dr. Robertson and with [place] vascular team. Tx to [place] where Dr. Mederos has agreed to accept pt. Pt is currently clinically and hemodynamically stable. D/c heparin gtt. Initiate esmolol gtt for maintenance of SBP <110mmHg. Discussed with pt and pt's at bedside. The patient has been seen in conjunction with Dr. Connelly who agrees with the assessment and plan of care. 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 VSS. Objective Last Vital Signs Temp 97.1 F L 07/06/18 00:00 Pulse 78 07/06/18 11:00 Resp 16 07/06/18 11:00 BP 156/67 07/06/18 11:00 Pulse Ox 98 07/06/18 11:00 - Physical Examination General: No Apparent Distress HEENT: Positive: EOMI, Normocephaly, Mucus Membranes Moist Neck: Positive: neck supple, trachea midline Cardiac: Positive: Reg Rate and Rhythm, S1/S2 Lungs: Positive: clear to auscultation Neuro: Positive: Grossly Intact Abdomen: Positive: Soft, Active Bowel Sounds. Negative: Tender Skin: Positive: Clear. Negative: Rash Musculoskeletal: Normal Range of Motion Extremities: Present: normal. Absent: edema - Labs and Meds CBC 07/06/18 Range/Units 02:25 WBC 11.4 H (4.5-11.0) K/mm3 RBC 3.11 L (3.65-5.03) M/mm3 Hgb 8.6 L (10.1-14.3) gm/dl Hct 25.7 L (30.3-42.9) % Plt Count 190 (140-440) K/mm3 Lymph # 1.2 (1.2-5.4) K/mm3 [place] # 0.7 (0.0-0.8) K/mm3 Eos # 0.1 (0.0-0.4) K/mm3 Baso # 0.0 (0.0-0.1) K/mm3 Comprehensive Metabolic Panel 07/06/18 Range/Units 02:25 Sodium 130 L (137-145) mmol/L Potassium 3.6 (3.6-5.0) mmol/L Chloride 97.8 L (98-107) mmol/L Carbon Dioxide 17 L (22-30) mmol/L BUN 46 H (7-17) mg/dL Creatinine 3.9 H (0.7-1.2) mg/dL Glucose 92 (65-100) mg/dL Calcium 7.4 L (8.4-10.2) mg/dL - Imaging and Cardiology EKG: image reviewed - Telemetry EKG Rhythm: Sinus Rhythm Chamber hypertrophy or enlargement: left ventricular hypertro - Allied health notes Allied health notes reviewed: nursing
[2018-07-06] MEDS: BREVIBLOC DRIP 2.5GM/250ML 2.5 GM/250 ML BAG IV SCH ×2 (12:37→14:56)
[2018-07-06] MEDS: NORVASC PO SCH (12:38)
[2018-07-06] MEDS: COREG PO SCH ×2 (12:38→13:49)
[2018-07-06] MEDS ORDERED: NACL 0.9% 500 ML 500 ML ONE (12:55)
--- NOTE | 2018-07-06 13:18 | Discharge Summary ---
Providers - Providers Date of Admission: 07/02/18 21:08 Date of discharge: 07/06/18 Attending physician: GEO HOWELL 07/03/18 07:27 Consult to Physician [CONS] Urgent Comment: Consulting Provider: HREI SANCHEZ Physician Instructions: Reason For Exam: critical care management 07/03/18 18:15 Consult to Physician [CONS] Routine Comment: Consulting Provider: CARLIE ROBIN Physician Instructions: Reason For Exam: elevated BUN and CReat 07/04/18 15:08 Physical Therapy Evaluation and Treat [CONS] Routine Comment: Reason For Exam: evaluate and treat 07/05/18 07:00 Consult to Physician [CONS] Routine Comment: Consulting Provider: GELACIO FRAGOSO Physician Instructions: Okay to see tomorrow Reason For Exam: Cardiac eval for embolic source 07/05/18 21:44 Consult to Physician [CONS] Urgent Comment: Consulting Provider: JANETH STAPLETON Physician Instructions: Reason For Exam: AMS 07/06/18 06:55 Consult to Physician [CONS] Routine Comment: Consulting Provider: KIP CALDERON Physician Instructions: Reason For Exam: STROKELIKE SYMPTOMS Primary care physician: MANAGER MANAGEMENT Hospitalization Reason for admission: Left Lower Extremity Ischemia Condition: Serious Pertinent studies: Arterial Duplex: 1. Low velocities throughout the aorta and right lower extremity arterial system. 2. Probable acute occlusion of the left common femoral and distal external iliac arteries Transesophageal echocardiogram: This revealed ascending aortic dissection. Procedures: Operative Report Operative Report: Date of procedure: 07/02/2018 Pre-operative diagnosis: Embolization to left common femoral artery Post-operative diagnosis: Same Procedure name(s): Open thrombectomy of left common femoral artery with diagnostic angiography and supervision and interpretation Surgeon: Geo Howell MD Meat Packer: None Anesthesia: Gen. endotracheal tube EBL: 250 mL Operative indication: Patient is a 62-year-old woman who had acute onset of pain involving the left lower extremity. Noninvasive arterial studies show thrombus in the left common femoral artery. She presents now for emergent thrombectomy of the left lower extremity. Findings: Acute poorly organized thrombus noted that the left common femoral artery. The thrombus did not extend into the profunda femoris or superficial femoral artery. There was an unusual appearance to the common femoral artery that seemed to be consistent with the dissection although I could not identify 2 lumens when I did the arteriotomy. Hospital course: HPI: Patient is a 62-year-old woman with a past medical history most significant for breast cancer which was last treated in 2007. At approximately 2 PM today she noticed the abrupt onset of pain and numbness involving the left lower extremity. Just prior to that she had had sensations of wanting to have a bowel movement. She actually did have 2 bowel movements. After the second bowel movement she described a sudden onset of pain and numbness involving the left lower extremity. The pain continues now. She states she cannot move the left foot and that it feels numb. She has no complaints relative to the right lower extremity. She denies any previous history of atrial fibrillation or arterial or venous thrombosis. She is not currently taking any hormone therapy for breast cancer. She is being treated for hypertension. Hospital course: Patient was admitted via the emergency room and taken emergently to the operating room where the above-stated procedure was performed without complication. Postoperative she was transferred to the recovery room and subsequently to the intensive care unit. The Intensivists were consulted. Her pain and neurologic function to the left lower extremity improved postoperatively. Her kidney function progressively worsened. Nephrology was consulted. Workup for possible source of embolus was initiated. CT angiogram of the chest abdomen and pelvis was placed on hold due to acute renal failure. A code stroke was called due to acute right-sided weakness and right facial drooping. A CT scan was ordered and reported as negative. Her symptoms subsequently resolved. Cardiology was consulted and a ANDREW was performed. This revealed a descending aortic dissection. She was started on an esmolol drip to control her blood pressure. This facility is incapable of treating a descending thoracic aortic dissection, and therefore arrangements were completed for the patient to be transferred to [facility] for further care. Dr. Mederos has agreed to accept the patient. Disposition: [id number] ANOTHER TYPE [facility] Core Measure Documentation - Palliative Care Palliative Care/ Comfort Measures: Not Applicable - Core Measures Any of the following diagnoses?: none Exam - Constitutional Vitals: Temp Pulse Resp BP Pulse Ox 97.1 F L 79 18 143/74 92 07/06/18 00:00 07/06/18 12:16 07/06/18 12:16 07/06/18 12:16 07/06/18 12:16 General appearance: Present: no acute distress - EENT Eyes: Present: EOM intact ENT: hearing intact - Neck Neck: Present: supple - Respiratory Respiratory effort: normal - Extremities Extremities: normal temperature - Psychiatric Psychiatric: appropriate mood/affect, intact judgment & insight, cooperative - Neurologic Neurologic: no focal deficits Plan Activity: advance as tolerated Weight Bearing Status: Weight Bear as Tolerated Diet: regular Wound: keep clean and dry Additional Instructions: maintenance of SBP <110mmHg Follow up with: GEO HOWELL MD [Staff Physician] - 14 Days CORNELIA MENDEZ MD [Staff Physician] - 14 Days
--- NOTE | 2018-07-06 13:39 | XRay Report ---
PORTABLE CHEST INDICATION: Acute hypoxemic respiratory failure. COMPARISON: None similar. FINDINGS: Portable, frontal chest radiograph suggests mild diffuse left lung haziness, greatest towards the base. Left hemidiaphragm obscured, though may be mildly elevated than the right with subjacent air containing viscus noted. Cardiomediastinal silhouette also obscured on the left. Exam limited due to mild patient rotation to the right. No large pleural effusions suspected on the right. Right chest Port-A-Cath tip may lie along the distal SVC. EKG leads. Slight thoracic levocurvature may be positional. CONCLUSION: Mild asymmetric left lung hazy opacification/infiltration with other findings, as detailed above. Please also correlate clinically and with prior relevant imaging, if available. Thank you for the opportunity to participate in this patient's care.
--- NOTE | 2018-07-06 15:41 | Event Note ---
Date: 07/06/18 Patient was seen and evaluated this morning, patient had physical therapy, patient was discharged by vascular surgery.
--- NOTE | 2018-07-06 15:46 | Progress Note ---
Assessment and Plan Assessment and plan: 62-year-old female was presented to the emergency department with complaints of left lower extremity pain. Patient was seen by vascular surgery and diagnosed immobilization to left common femoral artery and open thrombectomy of the left colon femoral artery with diagnostic angiography was done. Cardiology was consulted and ANDREW was done and revealed a descending aortic dissection. Patient was started on esmolol drip and transferred to [place] for the management of descending thoracic aortic dissection. Patient's primary is vascular surgery. History Interval history: Patient was seen and evaluated this morning, patient had physical therapy this morning and tolerated well. Hospitalist Physical - Physical exam Narrative exam: Not in cardiopulmonary distress. The patient is obese. Vital signs as documented. Head exam is unremarkable. No scleral icterus . Neck is without jugular venous distension, thyromegaly, or carotid bruits. Lungs are clear to auscultation. Cardiac exam reveals regular rate and Rhythm. First and second heart sounds normal. No murmurs, rubs or gallops. Abdominal exam reveals normal bowel sounds, no masses, no organomegaly and no aortic enlargement. Extremities are nonedematous and both femoral and pedal pulses are normal. 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 No focal weakness. - Constitutional Vitals: Temp Pulse Resp BP Pulse Ox 98.4 F 67 15 106/63 94 07/06/18 12:00 07/06/18 14:30 07/06/18 14:30 07/06/18 14:30 07/06/18 14:30 General appearance: Present: no acute distress Results - Labs CBC & Chem 7: 07/06/18 02:25 07/06/18 02:25 Labs: Laboratory Last Values WBC 11.4 K/mm3 (4.5-11.0) H 07/06/18 02:25 RBC 3.11 M/mm3 (3.65-5.03) L 07/06/18 02:25 Hgb 8.6 gm/dl (10.1-14.3) L 07/06/18 02:25 Hct 25.7 % (30.3-42.9) L 07/06/18 02:25 MCV 83 fl (79-97) 07/06/18 02:25 MCH 28 pg (28-32) 07/06/18 02:25 MCHC 33 % (30-34) 07/06/18 02:25 RDW 14.6 % (13.2-15.2) 07/06/18 02:25 Plt Count 190 K/mm3 (140-440) 07/06/18 02:25 Lymph % (Auto) 10.4 % (13.4-35.0) L 07/06/18 02:25 Sandoval % (Auto) 6.1 % (0.0-7.3) 07/06/18 02:25 Eos % (Auto) 0.6 % (0.0-4.3) 07/06/18 02:25 Baso % (Auto) 0.2 % (0.0-1.8) 07/06/18 02:25 Lymph # 1.2 K/mm3 (1.2-5.4) 07/06/18 02:25 Sandoval # 0.7 K/mm3 (0.0-0.8) 07/06/18 02:25 Eos # 0.1 K/mm3 (0.0-0.4) 07/06/18 02:25 Baso # 0.0 K/mm3 (0.0-0.1) 07/06/18 02:25 Seg Neutrophils % 82.7 % (40.0-70.0) H 07/06/18 02:25 Seg Neutrophils # 9.5 K/mm3 (1.8-7.7) H 07/06/18 02:25 PT 14.2 Sec. (12.2-14.9) 07/02/18 15:49 INR 1.05 (0.87-1.13) 07/02/18 15:49 APTT 25.2 Sec. (24.2-36.6) 07/02/18 15:49 Heparin Anti-Xa Level 0.25 U.I./ml (0.3-0.7) L 07/06/18 09:00 Sodium 130 mmol/L (137-145) L 07/06/18 02:25 Potassium 3.6 mmol/L (3.6-5.0) 07/06/18 02:25 Chloride 97.8 mmol/L (98-107) L 07/06/18 02:25 Carbon Dioxide 17 mmol/L (22-30) L 07/06/18 02:25 Anion Gap 19 mmol/L 07/06/18 02:25 BUN 46 mg/dL (7-17) H 07/06/18 02:25 Creatinine 3.9 mg/dL (0.7-1.2) H 07/06/18 02:25 Estimated GFR 14 ml/min 07/06/18 02:25 BUN/Creatinine Ratio 12 % 07/06/18 02:25 Glucose 92 mg/dL (65-100) 07/06/18 02:25 POC Glucose 90 (70-105) 07/04/18 05:13 Calcium 7.4 mg/dL (8.4-10.2) L 07/06/18 02:25 Total Creatine Kinase 165 units/L (30-135) H 07/02/18 15:49 Urine Color Yellow (Yellow) 07/04/18 02:00 Urine Turbidity Clear (Clear) 07/04/18 02:00 Urine pH 6.0 (5.0-7.0) 07/04/18 02:00 Ur Specific [place] 1.010 (1.003-1.030) 07/04/18 02:00 Urine Protein 100 mg/dl mg/dL (Negative) 07/04/18 02:00 Urine Glucose (UA) Neg mg/dL (Negative) 07/04/18 02:00 Urine Ketones Neg mg/dL (Negative) 07/04/18 02:00 Urine Blood Lg (Negative) 07/04/18 02:00 Urine Nitrite Neg (Negative) 07/04/18 02:00 Urine Bilirubin Neg (Negative) 07/04/18 02:00 Urine Urobilinogen < 2.0 mg/dL (<2.0) 07/04/18 02:00 Ur Leukocyte Esterase Neg (Negative) 07/04/18 02:00 Urine WBC (Auto) 1.0 /HPF (0.0-6.0) 07/04/18 02:00 Urine RBC (Auto) < 1.0 /HPF (0.0-6.0) 07/04/18 02:00 Urine Yeast (Budding) Few /HPF 07/04/18 02:00 Urine Eosinophils None seen (None Seen) 07/06/18 10:46 Urine Creatinine 34.8 mg/dL (0.1-20.0) H 07/04/18 02:00 Urine Sodium 92 mmol/L 07/04/18 02:00
--- NOTE | 2018-07-06 16:28 | Event Note ---
Date: 07/06/18 Called by RN to notify of change in mental status. Neurology at bedside on my arrival. Pt noted to be withdrawn, eyes open and gaze deviated to right side, nonverbal, not following commands, grimaces to painful stimuli. at bedside. pt hemodynamically stable, esmolol gtt infusing. Code STROKE activated and pt sent for STAT head CT. D/w Dr. Mederos at [facility] - he states that they would like to transfer the pt immediately and have plans to take pt to OR, he requests to add on chest CTA and abdomen pelvis CTA due to upcoming contemplated surgery. Studies added. Copy of imaging to be sent with pt to [facility]. Sofia NEWBERRY NP / DR. MENDEZ
--- NOTE | 2018-07-06 18:29 | Cat Scan Report ---
FINAL REPORT EXAM: CT ANGIO CHEST HISTORY: dissection TECHNIQUE: CT examination of the chest with IV contrast CT angiographic 2D and thick slab 3D image post-processing PRIORS: CTA abdomen pelvis 07/06/2018 FINDINGS: Moderate cardiomegaly without pericardial effusion. Normal-appearing esophagus. No hilar mass or mediastinal adenopathy. Normal caliber thoracic aorta. Aortic dissection is present with interval flat with proximal aspect at the distal aortic arch at approximately the level of the left subclavian artery. It extends into the abdominal aorta. Moderate left pleural effusion layering posteriorly. Average CT density of effusion is 24 with minimum density of-4. This suggests against hemorrhagic effusion. No definite CT evidence of acute aortic leak in that there is no evidence of extravasated contrast during the exam. Adjacent moderate left lower lobe posterior consolidation may be compressive atelectasis and/or pneumonia. The visible pulmonary arteries are diffusely patent. Slight posterior atelectasis in the right lower lobe. Patient arm in the diagnostic [id number] degrades image quality and limits the examination. No evidence of pneumothorax. No visible lung mass or pulmonary nodule. Nonspecific elevation left diaphragm with underlying stomach and hepatic flexure and spleen. IMPRESSION: Moderate cardiomegaly without pericardial effusion Linear lucency in central aortic lumen most compatible with dissection from distal aortic arch extending into abdominal aorta Moderate left pleural effusion layers posteriorly with adjacent compressive atelectasis and/or pneumonia. Slight posterior atelectasis right lower lobe Nonspecific elevation left diaphragm with underlying mesenteric fat, stomach, hepatic flexure, and spleen
[2018-07-06 18:40] VITALS: BP 111/54
--- NOTE | 2018-07-06 18:46 | Cat Scan Report ---
FINAL REPORT EXAM: CT ANGIO ABDOMEN PELVIS HISTORY: dissection TECHNIQUE: Multiple sections through the abdomen after IV contrast Multiple sections through the pelvis after IV contrast CT angiographic image post processing of the abdomen and pelvis. PRIORS: Chest CT 07/06/2018 FINDINGS: Nonspecific elevation left diaphragm with underlying mesenteric fat, stomach, spleen, and splenic flexure. Slight compressive atelectasis posterior right lower lobe base. Patient arm in the diagnostic [id number] degrades image quality and limits the examination. Normal-appearing liver, gallbladder, adrenals, pancreas, and spleen. Extending from the chest, there is again a curvilinear lucency in the abdominal aortic lumen most compatible with dissection. Dissecting intimal flap extends into the superior mesenteric artery. It also extends into the distal abdominal aorta to the level of the bifurcation. A dissecting flap is also noted extending into the left common iliac artery and left external iliac artery. No definite evidence of contrast extravasation to suggest active leak. Hyperdense IV contrast lumen is on the right of the aorta and lower density contrast noted to the left of the aorta. No evidence of aortic aneurysm. Normal caliber IVC. No aneurysm in the common iliac arteries. A nonspecific, smoothly marginated, low density, simple appearing left renal lesion is statistically most likely a cyst. No hydronephrosis or renal calculus. No calculus or distention in the visible portions of the ureters. Intact abdominal wall with midline surgical scar. No retroperitoneal adenopathy. No evidence of mesenteric mass. Normal-appearing stomach and duodenum. No small bowel distention in the abdomen and pelvis. Nonspecific distention of the urinary bladder. No pelvic free fluid. Normal-appearing rectum. Uterus not visualized. No adnexal abnormality. Normal-appearing sigmoid colon. No gross ascites, free air, or colonic distention. Normal-appearing terminal ileum, cecum, and appendix. IMPRESSION: Descending thoracic and diffuse abdominal aortic dissection extending into the superior mesenteric artery, left common iliac artery, and left external iliac artery. Distal aspect terminates at the left femoral artery bifurcation. No evidence of extension into the femoral arteries. No evidence of aortic aneurysm. Nonspecific elevation of left diaphragm with underlying normal-appearing organs 07/06/2018 at 6:37 p.m. EST: I discussed the findings of the chest CT, abdomen CT, and pelvis CT over the phone with Dr. Salinas. We discussed that the left pleural effusion is not as dense as hemorrhage suggesting leak from dissection is considered less likely, but not excludable.
--- NOTE | 2018-07-06 23:59 | Consultation ---
REQUESTING PHYSICIAN: Dr. Vallejo. REASON FOR CONSULT: Management of postoperative patient with stroke-like symptoms. 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 Vallejo requested that the hospitalist be consulted to evaluate the patient for these symptoms. There is no history of shortness of breath and no history of chest pain. There is no history of fever or chills. PAST MEDICAL HISTORY: Pertinent for breast cancer, status post lumpectomy and chemotherapy in 2007. PAST SURGICAL HISTORY: Pertinent for lumpectomy. FAMILY HISTORY: Noncontributory. SOCIAL HISTORY: The patient does not smoke, does not drink alcohol and does not use illicit drugs. MEDICATIONS: The patient is on the following medications: Amlodipine 10 mg by mouth daily, carvedilol 25 mg by mouth twice daily, Pepcid 20 mg IV daily. The patient is on heparin drip and on labetalol 10 mg IV every 6 hours needed for systolic blood pressure of more than 160. The patient is also on morphine IV 2 mg every 2 hours as needed for pain. Also, the patient is on nifedipine drip, which is titrated to control the blood pressure. The patient is also on oxygen by nasal cannula. ALLERGIES: There are no known drug allergies. REVIEW OF SYSTEMS: CONSTITUTIONAL: There is no fever, no chills, no diaphoresis. HEENT: There is no headache or sore throat. CARDIOVASCULAR: There is no chest pain or orthopnea. RESPIRATORY: There is no shortness of breath or cough. GASTROINTESTINAL SYSTEM: There is no nausea, no vomiting, no abdominal pain, diarrhea or constipation. NEUROLOGICAL SYSTEM: There is altered mental status with drooping of the face. MUSCULOSKELETAL: There is pain at the site of the surgery in the left lower extremity. DERMATOLOGICAL SYSTEM: There is no skin rash or itching. GENITOURINARY SYSTEM: There is no dysuria, hematuria or flank pain. Rest of her system review is normal. PHYSICAL EXAMINATION: GENERAL: At the time of exam, the patient was found to be alert, oriented x 3 and not in acute distress. VITAL SIGNS: Show normal temperature with pulse of 82, respirations 18, blood pressure 148/72, and O2 sat of 97% on room air. HEENT: Showed pupils to be equal, round, and reactive to light and accommodating. Extraocular muscles are intact. NECK: Supple with no JVD or carotid bruit. CARDIOVASCULAR SYSTEM: Showed normal first and second heart sounds with no gallops or murmurs. RESPIRATORY SYSTEM: Showed good air entry on both sides of the lungs with no abnormal breath sounds. GASTROINTESTINAL SYSTEM: Showed abdomen to be full, soft, nontender with no organomegaly or rigidity. NEUROLOGIC SYSTEM: Showed slight drooping on the right side of the mouth compared to the left and no evidence of muscle weakness or loss of sensory function. MUSCULOSKELETAL SYSTEM: Showed pain at the site of the surgery in the left groin area, with no joint swelling. DERMATOLOGICAL SYSTEM: Showed no skin rash. GENITOURINARY SYSTEM: Showed no costovertebral angle tenderness. PERTINENT LABORATORY AND IMAGING STUDIES: The patient had CT of the head done without contrast that shows no acute intracranial abnormalities. There is finding of an old lacunar infarct bilaterally in the basal ganglia. The patient's lab results show CBC with elevated white count of 11,400 with low hemoglobin of 8.6, with low hematocrit of 25.7 compared to normal hemoglobin of 10.1 yesterday and hematocrit of 29.1 yesterday. CBC differential showed elevated segmented neutrophil of 82.7%. The patient's chemistry showed low sodium of 130 with low chloride of 97 and the elevated BUN of 46 and elevated creatinine of 3.9 and low calcium level of 7.4. DIAGNOSES: 1. Altered mental status in a postoperative patient 2. Strokelike symptoms PLAN: We will consult with neurologist to evaluate the patient since there was concern about stroke like symptoms and then the hospitalist group will continue to follow the patient and monitor while the patient will continue her current treatment plan. JOB# [id number] [facility]/FATOUMATA ZHAO
--- NOTE | 2018-07-07 13:23 | Consultation ---
NEUROLOGICAL CONSULTATION REASON FOR CONSULTATION: Transient weakness on the right side last night, possible stroke. HISTORY OF PRESENT ILLNESS: History of present illness was obtained from the who was at the bedside. The patient is a 62-year-old left-handed black female, who apparently started to have problems since last Wednesday. She started to complain that she was having gas and her appetite is not good. She apparently tried to have bowel movement, but she had some difficulty. When she had second bowel movement, she had pain and numbness in the left lower extremity, that continued and therefore, she was brought to the hospital. Her last admission was 07/02/2018, so that was this Wednesday, so there is some conflict in the days as given by the ; so the symptoms of gas in the stomach must have been going on several days prior to her admission. Because of the continued pain in the left side, especially the left leg, she had the workup on Wednesday for another treated thrombus and complete occlusion of the left common femoral artery. She did have an embolectomy, but she continued to have problem and then was found that she has a dissecting aortic aneurysm. Her blood pressure was maintained. She was given heparin, this was discontinued and arrangement was made for her to be transferred to [place] because of the dissection. On exam today, I observed that this patient is lethargic, but I have no way to home. The said that she was fine in this morning and apparently she was talking. According to the , this morning, she even walked with the physical therapy and went near the window. I was concerned because of this lethargy. The patient did not receive any tranquilizer according to the nurse. The patient was noted to be having some worsening kidney function with creatinine going up. The patient was seen already by the clinic office manager, abstractor, and vascular specialties. PAST MEDICAL HISTORY: The patient has history of breast cancer way back in 2007, hypertension. She does not have any diabetes, renal failure or stroke before. PAST SURGICAL HISTORY: She had a left-sided mastectomy. 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 She lives with her . She does not smoke, no alcohol, no drugs. ALLERGIES: None is known. PHYSICAL EXAMINATION: GENERAL: At this time revealed an acutely ill female, she is very lethargic. VITAL SIGNS: Her blood pressure is 135/70. Her heart rate was 67. Good oxygenation. She is breathing about 18 per minute. HEAD, EYES, EARS, NOSE, MOUTH, AND THROAT: The patient looks pale. No intracranial or intraorbital bruit. NECK: Supple. No carotid bruit. HEART: Regular in rhythm. LUNGS: Sounds clear. ABDOMEN: Soft. EXTREMITIES: She is feeling warm now. A faint pulsation. NEUROLOGIC: The patient was very lethargic. She would not even talk, but this seems to be worsening from earlier. She would not respond to me. She seems to have tendency to have the right gaze preference, grimaces to pain. Examination is limited. She appeared to be restless. The left side seems to be moving less compared to the right. Reflexes symmetrical, somewhat depressed on the left. No Babinski. CLINICAL IMPRESSION: This patient just had thrombectomy to the left common femoral artery. She did have an acute embolization. She was found to have an aortic aneurysm and waiting to be transferred to [place]. The concern right now is to change in her mentation from even early this morning. I spoke with the and the nurse and even the cardiologists, and it appeared that she . I am worried that this patient may have sustained a stroke on the basis of the risk factors. We are calling a stroke alert. Discussed with the clinic office manager. I have discussed the case with Dr. Vallejo, who wanted to hold the CT scan. She will be transferred to [place]. However, she spoke with the clinic office manager and we decided to proceed with the CT scan on the high likelihood that this patient is having stroke. Sixty minutes involved in the history and physical examination. JOB# [id number] CHERRIE/FATOUMATA
== END 2018-07-06 18:17 | disposition short-term general hospital (02) | DRG 270 ==
LOC: ED 15:39 → CC1 21:08
PROVIDERS: ADMIT Surgery Vascular Surgery; ATTEND Surgery Vascular Surgery
PROC: 04CL0ZZ Extirpation of Matter from Left Femoral Artery, Open Approach (ICD-10-PCS; principal; 2018-07-02)
PROC: 04CD0ZZ Extirpation of Matter from Left Common Iliac Artery, Open Approach (ICD-10-PCS; 2018-07-02)
PROC: B41G1ZZ Fluoroscopy of Left Lower Extremity Arteries using Low Osmolar Contrast (ICD-10-PCS; 2018-07-02)
PROC: B24BZZ4 Ultrasonography of Heart with Aorta, Transesophageal (ICD-10-PCS; 2018-07-06)
DX: I74.3 Embolism and thrombosis of arteries of the lower extremities (principal); I71.03 Dissection of thoracoabdominal aorta; I77.77 Dissection of artery of lower extremity; N17.9 Acute kidney failure, unspecified; E87.1 Hypo-osmolality and hyponatremia; E87.2 Acidosis; I10 Essential (primary) hypertension; D64.9 Anemia, unspecified; E87.6 Hypokalemia; E87.5 Hyperkalemia; Z90.12 Acquired absence of left breast and nipple; Z80.3 Family history of malignant neoplasm of breast
CPT/HCPCS: 36415; 70450; 71045; 71275; 74174; 76770; 80048; 81001; 82550; 82570; 82962; 84132; 84300; 85014; 85018; 85025; 85520; 85610; 85730; 88304; 89050; 93005; 93010; 93312; 93320; 93325; 93880; 94760; A4649; C1757; J0690; J1170; J1644; J2270; J2405; J2704; J2710; J3010; J3480; J7030; J7040; J7050; Q9966; Q9967